=== PATIENT | female | born 1960 | race Caucasian/White ===

== ENCOUNTER → 2017-04-11 | Outpatient (CLI) | payer OTHER ==
--- NOTE | 2017-04-11 10:20 | MM ---
Reason for exam: additional evaluation requested from prior study. Last mammogram was performed 1 year ago. History: Patient is postmenopausal. Family history of premenopausal breast cancer in sister at age 36 and premenopausal breast cancer in grandmother at age 45. Benign excisional biopsy of the left breast. Benign excisional biopsy of the right breast. Took hormonal contraceptives for 3 months beginning at age 18. Took estrogen for 2 years. MG 3D Diag Mammo W/Cad RADHA Bilateral CC and MLO view(s) were taken. Prior study comparison: March 31, 2016, bilateral MG diagnostic mammo w CAD RADHA. October 08, 2015, left breast MG 3d diag mammo w/cad LT. March 12, 2015, bilateral MG diagnostic mammo w CAD RADHA. There is chronic nodularity bilaterally. There is no new dominant lesion. These results were verbally communicated with the patient and result sheet given to the patient on 04/11/17. ASSESSMENT: Benign, BI-RAD 2 RECOMMENDATION: Routine screening mammogram of both breasts in 1 year.
== END | disposition home or self-care (01) ==
LOC: RADMAMWWP 09:41
PROVIDERS: ATTEND Family Medicine
DX: N64.59 Other signs and symptoms in breast (principal); Z80.3 Family history of malignant neoplasm of breast; Z98.890 Other specified postprocedural states; Z87.898 Personal history of other specified conditions
CPT/HCPCS: G0204; G0279

== ENCOUNTER → 2018-03-29 | Outpatient (CLI) | payer OTHER ==
--- NOTE | 2018-04-03 13:06 | MM ---
Reason for exam: additional evaluation requested from prior study. Last mammogram was performed 1 year ago. History: Patient is postmenopausal. Family history of premenopausal breast cancer in sister at age 36 and premenopausal breast cancer in grandmother at age 45. Benign excisional biopsy of the left breast. Benign excisional biopsy of the right breast. Took hormonal contraceptives for 3 months beginning at age 18. Took estrogen for 2 years. Physical Findings: Nurse did not find any significant physical abnormalities on exam. MG Diagnostic Mammo w CAD RADHA Bilateral CC and MLO view(s) were taken. Prior study comparison: April 11, 2017, bilateral MG 3d diag mammo w/cad RADHA. March 31, 2016, bilateral MG diagnostic mammo w CAD RADHA. There is chronic nodularity in the left breast. There is no discrete abnormality. These results were verbally communicated with the patient and result sheet given to the patient on 03/29/18. ASSESSMENT: Negative, BI-RAD 1 RECOMMENDATION: Routine screening mammogram of both breasts in 1 year.
== END | disposition home or self-care (01) ==
LOC: RADMAMWWP 10:15
PROVIDERS: ATTEND Family Medicine
DX: R92.2 Inconclusive mammogram (principal)
CPT/HCPCS: 77066

== ENCOUNTER → 2019-04-25 | Outpatient (CLI) | payer OTHER ==
--- NOTE | 2019-04-29 10:07 | MM ---
Reason for exam: screening (asymptomatic). Last mammogram was performed 1 year and 1 month ago. History: Patient is postmenopausal. Family history of premenopausal breast cancer in sister at age 36 and premenopausal breast cancer in grandmother at age 45. Benign excisional biopsy of the left breast. Benign excisional biopsy of the right breast. Took hormonal contraceptives for 3 months beginning at age 18. Took estrogen for 2 years. Physical Findings: A clinical breast exam by your physician is recommended on an annual basis and results should be correlated with mammographic findings. MG Screening Mammo w CAD Bilateral CC and MLO view(s) were taken. Prior study comparison: March 29, 2018, bilateral MG diagnostic mammo w CAD RADHA. April 11, 2017, bilateral MG 3d diag mammo w/cad RADHA. The breast tissue is heterogeneously dense. This may lower the sensitivity of mammography. No suspicious abnormality. Unchanged posterior depth left medial asymmetry. No significant changes when compared with prior studies. ASSESSMENT: Benign, BI-RAD 2 RECOMMENDATION: Routine screening mammogram of both breasts in 1 year.
== END | disposition home or self-care (01) ==
LOC: RADMAMWWP 11:09
PROVIDERS: ATTEND Family Medicine
DX: Z12.31 Encounter for screening mammogram for malignant neoplasm of breast (principal)
CPT/HCPCS: 77067

== ENCOUNTER → 2020-05-28 | Outpatient (CLI) | payer OTHER ==
--- NOTE | 2020-05-31 12:02 | MM ---
Reason for exam: screening (asymptomatic). Last mammogram was performed 1 year and 1 month ago. History: Patient is postmenopausal. Family history of premenopausal breast cancer in sister at age 36 and premenopausal breast cancer in grandmother at age 45. Benign excisional biopsy of the left breast. Benign excisional biopsy of the right breast. Took hormonal contraceptives for 3 months beginning at age 18. Took estrogen for 2 years. Physical Findings: A clinical breast exam by your physician is recommended on an annual basis and results should be correlated with mammographic findings. MG 3D Screening Mammo W/Cad Bilateral CC and MLO view(s) were taken. Prior study comparison: April 25, 2019, bilateral MG screening mammo w CAD. March 29, 2018, bilateral MG diagnostic mammo w CAD RADHA. The breast tissue is heterogeneously dense. This may lower the sensitivity of mammography. There is chronic nodularity in the left breast. There is no discrete abnormality. ASSESSMENT: Benign, BI-RAD 2 RECOMMENDATION: Routine screening mammogram of both breasts in 1 year.
== END | disposition home or self-care (01) ==
LOC: RADMAMWWP 16:16
PROVIDERS: ATTEND Family Medicine
DX: Z12.31 Encounter for screening mammogram for malignant neoplasm of breast (principal)
CPT/HCPCS: 77063; 77067

== ENCOUNTER → 2021-09-13 | Outpatient (CLI) | payer OTHER ==
--- NOTE | 2021-09-15 10:55 | MM ---
Reason for exam: screening (asymptomatic). Last mammogram was performed 1 year and 4 months ago. History: Patient is postmenopausal. Family history of premenopausal breast cancer in sister at age 36 and premenopausal breast cancer in grandmother at age 45. Benign excisional biopsy of the left breast. Benign excisional biopsy of the right breast. Took hormonal contraceptives for 3 months beginning at age 18. Took estrogen for 2 years. Physical Findings: A clinical breast exam by your physician is recommended on an annual basis and results should be correlated with mammographic findings. MG 3D Screening Mammo W/Cad Bilateral CC and MLO view(s) were taken. XCCL view(s) were taken of the right breast. Prior study comparison: May 28, 2020, bilateral MG 3d screening mammo w/cad. April 25, 2019, bilateral MG screening mammo w CAD. There are scattered fibroglandular densities. There is chronic nodularity bilaterally. No significant changes when compared with prior studies. ASSESSMENT: Benign, BI-RAD 2 RECOMMENDATION: Routine screening mammogram of both breasts in 1 year.
== END | disposition home or self-care (01) ==
LOC: RADMAMWWP 11:45
PROVIDERS: ATTEND Family Medicine
DX: Z12.31 Encounter for screening mammogram for malignant neoplasm of breast (principal); Z80.3 Family history of malignant neoplasm of breast; Z78.0 Asymptomatic menopausal state
CPT/HCPCS: 77063; 77067

== ENCOUNTER → 2022-04-07 | Outpatient (CLI) | payer OTHER ==
[2022-04-07 18:19] LABS: Basophils # (A) 0.06 X 10*3/uL (0.00-0.10); Basophils % (A) 0.9 %; Eosinophils # (A) 0.06 X 10*3/uL (0.04-0.35); Eosinophils % (A) 0.9 %; HGB 12.6 g/dL (12.0-15.0); Immature Grans, Automated 0.5 %; Lymphocytes # (A) 0.94 X 10*3/uL (0.90-5.00); Lymphocytes % (A) 14.8 %; MCH 28.3 pg (27.0-32.0); MCHC 33.2 g/dL (32.0-37.0); MCV 85.4 fL (80.0-97.0); Mean Platelet Volume 10.5 fL (9.5-12.2); Monocytes # (A) 0.73 X 10*3/uL (0.20-1.00); Monocytes % (A) 11.5 %; NRBC Per 100 WBC 0 /100 WBCS (0.0-0.0); Neutrophils # (A) 4.55 X 10*3/uL (1.80-7.70); Neutrophils % (A) 71.4 %; Platelet Count 361 X 10*3/uL (140-440); RBC 4.45 X 10*6/uL (4.10-5.20); RDW 14.5 % (11.5-14.5); WBC 6.37 X 10*3/uL (4.50-10.00)
[2022-04-07 18:49] LABS: Erythrocyte Sedimentation Rate 12 mm/Hr (0-30)
== END | disposition home or self-care (01) ==
LOC: LABWHC1 10:46
PROVIDERS: ATTEND Internal Medicine
DX: C34.90 Malignant neoplasm of unspecified part of unspecified bronchus or lung (principal); R63.4 Abnormal weight loss; R91.1 Solitary pulmonary nodule
CPT/HCPCS: 36415; 85025; 85652; 86301

== ENCOUNTER → 2022-04-14 | Outpatient (CLI) | payer OTHER ==
--- NOTE | 2022-04-16 22:43 | PE ---
EXAMINATION TYPE: PET CT fusion skull to thigh DATE OF EXAM: 04/14/2022 CLINICAL INDICATION:Female, 62 years old with history of R91.1 SOLITARY PULMONARY NODULE; TECHNIQUE: Following the intravenous administration of 12.77 mCi of F-18 FDG, whole body images are performed from the skull base to the midthigh. Images are reviewed on the computer in the coronal, axial, and sagittal planes. Reconstructed rotating images are created on independent workstation and reviewed on the computer. A non-contrast CT is performed in conjunction with the PET scan. Glucose level 145 mg/dL COMPARISON: CT None, PET/CT None, plain film 04/07/2022 FINDINGS: Mediastinal SUV mean is 1.6. Hepatic parenchyma SUV mean is 1.7. SKULL BASE AND NECK: No suspicious FDG activity. CHEST, MEDIASTINUM, AND HILAR REGION: Bilateral pleural effusions with scattered consolidation opacities. Additionally there thickening of the intralobular septa. Consolidation in the right middle lobe max SUV 2.8. Mediastinal lymph nodes including right low paratracheal measuring 10 mm in short axis with max SUV 2 .6, right pulmonary hilum which is suboptimally evaluated without contrast with max SUV 4.0 and subca rinal measuring 15 in short axis with max SUV 3.3. Multiple opacities with masslike appearance, examples of the largest include: * Right upper lobe 2.2 x 2.2 cm with max SUV 3.0. * Right upper lobe more inferior 2.2 x 1.7 cm with max SUV 2.0. * Left upper lobe 12 mm with max SUV 1.7 Consolidation in the right middle lobe max SUV 2.8. ABDOMEN AND PELVIS: * Ill-defined right hepatic lobe given noncontrast technique demonstrating increased FDG uptake with Max SUV 7.0 measuring at least 4.9 x 3.1 cm in the right hepatic lobe. Possible additional area kady uring Max SUV 2.9 cm near the dome of the liver * Eccentric left posterior rectal wall thickening measuring up to 12 mm with increased FDG activity max SUV 4.5. * Suspicious FDG activity within a soft tissue mass measuring 3.1 x 2.6 cm located within the spleni c hilum immediately adjacent and/or within the pancreatic tail measuring Max SUV 6.6. OSSEOUS STRUCTURES: No suspicious FDG activity. OTHER CT: There is a pericardial effusion. Small hiatal hernia is present. Postsurgical changes to th e stomach. Atherosclerosis of the arterial vasculature. The scattered clonic diverticula. Post surgic al changes anterior abdominal wall. IMPRESSION: 1. 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 Direct visu alization recommended. 2. Right hepatic lobe masslike area of FDG activity measuring up to 4.8 cm. Further evaluation the l iver is recommended CT/ MRI with IV contrast liver mass protocol. Findings may relate to #1. 3. Scattered pulmonary nodules of which the largest in the right upper lobe measuring 2.2 cm as well as multiple other larger nodules which demonstrate mild FDG activity and given the distribution coul d represent metastatic disease with possible lymphangitic carcinomatosis of the lungs. There is assoc iated mediastinal lymphadenopathy also concerning for metastatic disease. There may be superimposed i nfection and/or vascular congestion given findings. 4. Irregular splenic hilum/pancreatic tail mass with increased FDG activity measuring up to 3.1 cm u nclear etiology given the constellation of findings above. Correlate clinical history.
== END | disposition home or self-care (01) ==
LOC: RADPETMAIN 10:02
PROVIDERS: ATTEND Internal Medicine
DX: K62.89 Other specified diseases of anus and rectum (principal); R91.8 Other nonspecific abnormal finding of lung field; K86.89 Other specified diseases of pancreas
CPT/HCPCS: 78815; A9552

== ENCOUNTER 2022-04-17 15:20 | Inpatient (IN) | payer OTHER ==
--- NOTE | 2022-04-17 16:56 | ED ---
General Adult HPI - General Chief complaint: Shortness of Breath Stated complaint: BRITTANI,Cough,PCP send abnormal Catscan Time Seen by Provider: 04/17/22 16:42 Source: patient, RN notes reviewed, old records reviewed Mode of arrival: wheelchair - History of Present Illness Initial comments: 62-year-old female presenting for evaluation of dyspnea and weight loss as well as abnormal outpatient PET scan. Patient was sent in by her radiology tech with abnormal PET scan. She's had progressive dyspnea over several months but this has worsened significantly over the past one week. She has a dry cough. She's had a 35 pound weight loss. No fever. No significant chest pain. She has some abdominal distention without pain. She has remote history of DVT but currently not on any blood thinners. - Related Data Home Medications Medication Instructions Recorded Confirmed ALPRAZolam [Xanax] 0.25 mg PO BID PRN 04/17/22 04/17/22 ARIPiprazole [Abilify] 5 mg PO DAILY 04/17/22 04/17/22 Albuterol Inhaler [Ventolin Hfa 1 - 2 puff INHALATION RT-Q6H PRN 04/17/22 04/17/22 Inhaler] Atorvastatin Calcium 10 mg PO HS 04/17/22 04/17/22 Cetirizine HCl [Zyrtec] 10 mg PO DAILY 04/17/22 04/17/22 Cholecalciferol [Vitamin D3 (25 50 mcg PO DAILY 04/17/22 04/17/22 Mcg = 1000 Iu)] Cyanocobalamin (Vitamin B-12) 1,000 mcg PO DAILY 04/17/22 04/17/22 [Vitamin B-12] Escitalopram [Lexapro] 10 mg PO DAILY 04/17/22 04/17/22 Famotidine [Pepcid] 20 mg PO BID 04/17/22 04/17/22 Fluticasone Nas[place] [Flonase 1 spray EA NOSTRIL DAILY 04/17/22 04/17/22 [place]] Multivitamins, Thera [Multivitamin 1 tab PO DAILY 04/17/22 04/17/22 (formulary)] Oxybutynin Chloride [Ditropan] 5 mg PO BID 04/17/22 04/17/22 Oxybutynin Chloride [Ditropan] 5 mg PO BID PRN 04/17/22 04/17/22 hydroCHLOROthiazide [Hydrodiuril] 25 mg PO DAILY 04/17/22 04/17/22 lamoTRIgine 100 mg PO BID 04/17/22 04/17/22 metFORMIN HCL 500 mg PO BID 04/17/22 04/17/22 sitaGLIPtin [Januvia] 100 mg PO DAILY 04/17/22 04/17/22 Allergies Allergy/AdvReac Type Severity Reaction Status Date / Time Sulfa (Sulfonamide AdvReac Rash/Hives Verified 04/17/22 18:24 Antibiotics) sulfamethoxazole AdvReac Rash/Hives Verified 04/17/22 18:24 [From Bactrim] trimethoprim [From Bactrim] AdvReac Rash/Hives Verified 04/17/22 18:24 Review of Systems ROS Statement: Those systems with pertinent positive or pertinent negative responses have been documented in the HPI. ROS Other: All systems not noted in ROS Statement are negative. Past Medical History Past Medical History: Diabetes Mellitus History of Any Multi-Drug Resistant Organisms: None Reported Past Surgical History: Bariatric Surgery, Section, Hysterectomy, Tonsillectomy Past Psychological History: No Psychological Hx Reported Smoking Status: Former smoker Past Alcohol Use History: Rare Past Drug Use History: None Reported General Exam General appearance: alert, in distress Head exam: Present: atraumatic, normocephalic Eye exam: Present: normal appearance, PERRL ENT exam: Present: normal exam Neck exam: Present: normal inspection. Absent: tenderness, meningismus Respiratory exam: Present: respiratory distress, other (Tachypnea with good air entry). Absent: wheezes, rales Cardiovascular Exam: Present: regular rate, normal rhythm GI/Abdominal exam: Present: distended. Absent: tenderness, guarding Extremities exam: Present: normal inspection Neurological exam: Present: alert, oriented X3, CN II-XII intact. Absent: motor sensory deficit Psychiatric exam: Present: anxious Skin exam: Present: warm, dry, intact. Absent: cyanosis, diaphoretic Course Vital Signs 04/17/22 04/17/22 04/17/22 15:31 17:30 18:18 Temperature 97.8 F Pulse Rate 91 90 Respiratory 16 22 20 Rate Blood Pressure 162/79 155/86 O2 Sat by Pulse 91 L 94 L Oximetry EKG Findings - EKG Comments: EKG Findings:: EKG: Sinus rhythm low voltage, rate of 92, OK interval 142, QRS duration 81, QTC [address] segment elevation. Medical Decision Making - Medical Decision Making 62-year-old female with progressive dyspnea. Patient is tachypneic with good air entry. No fever. Mild hypoxia. Patient had PET scan showing multiple areas of uptake. Workup initiated in the emergency department includes la boratory testing, EKG, chest x-ray. Patient has significantly elevated d-dimer and CT angiography was performed which was negative for pulmonary embolism but showed extensive pulmonary infiltrate and pulmonary mass suggestive of metastatic disease as well as hypodensity within the liver and pancreas. The patient's had a hyponatremia of 118 otherwise normal electrolytes. She will be admitted to internal medicine with both pulmonology who is aware of the patient's current issue and oncology placed on consult. Case discussed with Misbah conteh for [facility] - Lab Data Result diagrams: 04/17/22 17:12 04/17/22 17:12 Lab Results 04/17/22 04/17/22 04/17/22 Range/Units 17:12 17:12 17:12 WBC 10.4 (3.8-10.6) k/uL RBC 4.79 (3.80-5.40) m/uL Hgb 13.2 (11.4-16.0) gm/dL Hct 40.7 (34.0-46.0) % MCV 85.1 (80.0-100.0) fL MCH 27.5 (25.0-35.0) pg MCHC 32.3 (31.0-37.0) g/dL RDW 14.7 (11.5-15.5) % Plt Count 254 (150-450) k/uL MPV 7.5 Neutrophils % 79 % Lymphocytes % 10 % Monocytes % 7 % Eosinophils % 3 % Basophils % 1 % Neutrophils # 8.2 H (1.3-7.7) k/uL Lymphocytes # 1.0 (1.0-4.8) k/uL Monocytes # 0.7 (0-1.0) k/uL Eosinophils # 0.3 (0-0.7) k/uL Basophils # 0.1 (0-0.2) k/uL PT 10.2 (9.0-12.0) sec INR 0.9 (<1.2) APTT 22.5 (22.0-30.0) sec D-Dimer 7.55 H (<0.60) mg/L FEU Sodium 118 L* (137-145) mmol/L Potassium 3.8 (3.5-5.1) mmol/L Chloride 83 L (98-107) mmol/L Carbon Dioxide 22 (22-30) mmol/L Anion Gap 13 mmol/L BUN 6 L (7-17) mg/dL Creatinine 0.43 L (0.52-1.04) mg/dL Est GFR (CKD-EPI)AfAm >90 (>60 ml/min/1.73 sqM) Est GFR (CKD-EPI)NonAf >90 (>60 ml/min/1.73 sqM) Glucose 128 H (74-99) mg/dL Plasma Lactic Acid De (0.7-2.0) mmol/L Calcium 9.1 (8.4-10.2) mg/dL Magnesium 1.7 (1.6-2.3) mg/dL Total Bilirubin 1.0 (0.2-1.3) mg/dL AST 70 H (14-36) U/L ALT 30 (4-34) U/L Alkaline Phosphatase 260 H (38-126) U/L NT-Pro-B Natriuret Pep pg/mL Total Protein 6.8 (6.3-8.2) g/dL Albumin 4.3 (3.5-5.0) g/dL 04/17/22 04/17/22 Range/Units 17:12 17:12 WBC (3.8-10.6) k/uL RBC (3.80-5.40) m/uL Hgb (11.4-16.0) gm/dL Hct (34.0-46.0) % MCV (80.0-100.0) fL MCH (25.0-35.0) pg MCHC (31.0-37.0) g/dL RDW (11.5-15.5) % Plt Count (150-450) k/uL MPV Neutrophils % % Lymphocytes % % Monocytes % % Eosinophils % % Basophils % % Neutrophils # (1.3-7.7) k/uL Lymphocytes # (1.0-4.8) k/uL Monocytes # (0-1.0) k/uL Eosinophils # (0-0.7) k/uL Basophils # (0-0.2) k/uL PT (9.0-12.0) sec INR (<1.2) APTT (22.0-30.0) sec D-Dimer (<0.60) mg/L FEU Sodium (137-145) mmol/L Potassium (3.5-5.1) mmol/L Chloride (98-107) mmol/L Carbon Dioxide (22-30) mmol/L Anion Gap mmol/L BUN (7-17) mg/dL Creatinine (0.52-1.04) mg/dL Est GFR (CKD-EPI)AfAm (>60 ml/min/1.73 sqM) Est GFR (CKD-EPI)NonAf (>60 ml/min/1.73 sqM) Glucose (74-99) mg/dL Plasma Lactic Acid De 1.2 (0.7-2.0) mmol/L Calcium (8.4-10.2) mg/dL Magnesium (1.6-2.3) mg/dL Total Bilirubin (0.2-1.3) mg/dL AST (14-36) U/L ALT (4-34) U/L Alkaline Phosphatase (38-126) U/L NT-Pro-B Natriuret Pep 514 pg/mL Total Protein (6.3-8.2) g/dL Albumin (3.5-5.0) g/dL Critical Care Time Critical Care Time: Yes Total Critical Care Time: 35 Disposition Clinical Impression: Hyponatremia, Metastatic cancer Disposition: ADMITTED IP TO THIS [facility] Condition: Serious Is patient prescribed a controlled substance at d/c from ED?: No Referrals: Tara Pandey NPC [REFERRING] - 1-2 days Time of Disposition: 19:43
[2022-04-17 17:34] LABS: Basophils # (A) 0.1 k/uL (0-0.2); Basophils % (A) 1 %; Eosinophils # (A) 0.3 k/uL (0-0.7); Eosinophils % (A) 3 %; HCT 40.7 % (34.0-46.0); HGB 13.2 gm/dL (11.4-16.0); Lymphocytes % (A) 10 %; MCH 27.5 pg (25.0-35.0); MCHC 32.3 g/dL (31.0-37.0); MCV 85.1 fL (80.0-100.0); Mean Platelet Volume 7.5; Monocytes # (A) 0.7 k/uL (0-1.0); Monocytes % (A) 7 %; Neutrophils # (A) 8.2 k/uL (1.3-7.7); Neutrophils % (A) 79 %; Platelet Count 254 k/uL (150-450); RBC 4.79 m/uL (3.80-5.40); RDW 14.7 % (11.5-15.5); WBC 10.4 k/uL (3.8-10.6)
[2022-04-17 17:41] LABS: ALT 30 U/L (4-34); African American GFR (CKD) >90 (>60 ml/min/1.73 sqM); Anion Gap 13 mmol/L; Blood Urea Nitrogen 6 mg/dL (7-17); Calcium 9.1 mg/dL (8.4-10.2); Carbon Dioxide 22 mmol/L (22-30); Chloride 83 mmol/L (98-107); Glucose 128 mg/dL (74-99); Non-African American GFR(CKD) >90 (>60 ml/min/1.73 sqM)
[2022-04-17 17:43] LABS: Sodium 118 mmol/L (137-145)
[2022-04-17 17:44] LABS: AST 70 U/L (14-36); Albumin 4.3 g/dL (3.5-5.0); Alkaline Phosphatase 260 U/L (38-126); Potassium 3.8 mmol/L (3.5-5.1); Total Protein 6.8 g/dL (6.3-8.2)
[2022-04-17 17:45] LABS: Magnesium 1.7 mg/dL (1.6-2.3)
[2022-04-17 17:52] LABS: INR 0.9 (<1.2); Partial Thromboplastin Time 22.5 sec (22.0-30.0); Prothrombin Time 10.2 sec (9.0-12.0)
--- NOTE | 2022-04-17 18:29 | XR ---
EXAMINATION TYPE: XR chest 2V DATE OF EXAM: 04/17/2022 COMPARISON: 04/07/2022 HISTORY: Nodules. Pain TECHNIQUE: 2 views FINDINGS: There is extensive interstitial and nodular infiltrates throughout the lungs. There is slig ht blunting of the costophrenic angles. Mediastinum is normal. There is probably mild bronchial adeno minnie. IMPRESSION: Extensive nodular and interstitial infiltrate in the lungs that has progressed compared t o the old exam.
[2022-04-17] MEDS: SODIUM CHLORIDE 0.9% 1,000 ML IV SCH (18:56)
--- NOTE | 2022-04-17 19:36 | CT ---
EXAMINATION TYPE: CT angio chest DATE OF EXAM: 04/17/2022 COMPARISON: None HISTORY: BRITTANI CT DLP: 383.6 mGycm Automated exposure control for dose reduction was used. CONTRAST: Performed with IV Contrast, patient injected with 80ML mL of Isovue 370. There are Three-D postprocessed images. There is extensive nodular interstitial infiltrate throughout the lungs. There is bilateral pleural e ffusions. There is some stellate masses in both lung corbett that measure up to 3 cm. There are enlarg ed bilateral bronchial lymph nodes up to 2 cm. Thoracic aorta is intact. No aneurysm or dissection. T here is some consolidation in the right middle lobe. The thoracic spine is intact. No compression fracture. Sternum is intact. There is rounded 4.5 x 3 cm hypodense mass in the posterior right lobe of the liver with some periphe ral enhancement. There is also some poorly marginated 4 cm area of hypodensity in the mid right lobe of the liver. There is a mass at the tail of the pancreas that measures 3.1 cm. No evidence of filling defect in the pulmonary arteries. IMPRESSION: Numerous pulmonary masses and extensive interstitial pulmonary infiltrates and suggestive of metastat ic disease and lymphangitic metastatic disease. Moderate pleural effusions. No evidence of pulmonary embolism. Mass at the tail of the pancreas could be a tumor. Hypodense liver mass in the posterior right lobe o f the liver. Hypodensity in mid right lobe of the liver consistent with metastatic disease and not changed compare d to recent PET/CT scan.
[2022-04-17] MEDS ORDERED: HYDROmorphone 0.5 MG/0.5 ML SYRINGE IVP PRN (19:39)
[2022-04-17] MEDS ORDERED: NALOXONE 0.4 MG/ML 1 ML VIAL IV PRN (19:39)
--- NOTE | 2022-04-17 20:19 | US ---
EXAMINATION TYPE: US liver DATE OF EXAM: 04/17/2022 COMPARISON: PET CT 04/14/22 CLINICAL HISTORY: pancreatic mass wilh liver mets. liver mets TECHNIQUE: Multiple sonographic images of the right upper quadrant are obtained. FINDINGS: EXAM MEASUREMENTS: Liver Length: 19.7 cm Gallbladder Wall: 0.15 cm CBD: 0.29 cm Right Kidney: 10.6 x 5.0 x 4.7 cm TON CONTAINER FILLER NOTES: Pancreas: Limited due to bowel gas Liver: Heterogeneous Gallbladder: Hydropic measuring 10.3 cm Evidence for sonographic Williamson's sign: No CBD: Not well visualized Right Kidney: wnl IMPRESSION: Gallbladder is large and measures 10.7 x 3.8 cm. No dilated ducts. There is a 4 cm poorly marginated area of increased echogenicity in the right lobe of the liver near the albina hepatis. This is consist ent with metastatic disease.
--- NOTE | 2022-04-17 20:20 | US ---
EXAMINATION TYPE: US chest DATE OF EXAM: 04/17/2022 COMPARISON: NONE CLINICAL HISTORY: Markings for thoracentesis by pulmonary staff. TECHNIQUE: Targeted ultrasound of the posterior lower bilateral hemithoraces EXAM MEASUREMENTS: Right Pleural Effusion pocket size: 11.3 cm Right skin surface to fluid distance: 2.1 cm Left Pleural Effusion pocket size: 10.1 cm Left skin surface to fluid distance: 1.7 cm Right side marked for possible thoracentesis outside the dept. Left side marked for possible thoracentesis outside the dept. Pulmonologists are able to review the images in the patient?s EMR. Fluid pockets are complex bilaterally IMPRESSIONS: There is demonstrated moderate sized bilateral pleural effusions.
[2022-04-17] MEDS: ACETAMINOPHEN TAB 325 MG TAB PO PRN (21:42)
[2022-04-17] MEDS ORDERED: IBUPROFEN 400 MG TAB PO PRN (22:14)
[2022-04-17] MEDS: OXYBUTYNIN CHLORIDE 5 MG TAB PO SCH (22:23)
[2022-04-17] MEDS: lamoTRIgine 100 MG TAB PO SCH (22:23)
[2022-04-17] MEDS: ALPRAZolam 0.25 MG TAB PO PRN (22:23)
[2022-04-18] MEDS: ALPRAZolam 0.25 MG TAB PO PRN ×2 (04:54→12:32)
[2022-04-18 06:01] LABS: Glucose,Whole Blood 160 mg/dL (70-110)
[2022-04-18] MEDS: INSULIN ASPART (NovoLOG) 100 UNIT/ML VIAL SQ SCH ×4 (06:32→22:26)
[2022-04-18] MEDS: OXYBUTYNIN CHLORIDE 5 MG TAB PO SCH ×2 (09:13→19:53)
[2022-04-18] MEDS: lamoTRIgine 100 MG TAB PO SCH ×2 (09:13→19:53)
[2022-04-18] MEDS: ACETAMINOPHEN TAB 325 MG TAB PO PRN ×2 (10:39→19:53)
[2022-04-18] MEDS ORDERED: LIDOCAINE 1% INJ 10MG/ML (20 ML MDV) ONE (11:10)
[2022-04-18 11:21] LABS: Basophils % (A) 0 %; Eosinophils # (A) 0.1 k/uL (0-0.7); Eosinophils % (A) 2 %; HCT 40.1 % (34.0-46.0); HGB 13.1 gm/dL (11.4-16.0); Lymphocytes # (A) 0.7 k/uL (1.0-4.8); Lymphocytes % (A) 8 %; MCH 27.8 pg (25.0-35.0); MCHC 32.6 g/dL (31.0-37.0); MCV 85.5 fL (80.0-100.0); Mean Platelet Volume 8.5; Monocytes # (A) 0.6 k/uL (0-1.0); Monocytes % (A) 7 %; Neutrophils % (A) 81 %; Platelet Count 211 k/uL (150-450); RDW 14.8 % (11.5-15.5); WBC 8.6 k/uL (3.8-10.6)
[2022-04-18 11:38] LABS: African American GFR (CKD) >90 (>60 ml/min/1.73 sqM); Anion Gap 13 mmol/L; Blood Urea Nitrogen 5 mg/dL (7-17); Carbon Dioxide 25 mmol/L (22-30); Chloride 83 mmol/L (98-107); Glucose 142 mg/dL (74-99); Non-African American GFR(CKD) >90 (>60 ml/min/1.73 sqM); Sodium 121 mmol/L (137-145)
[2022-04-18 11:40] LABS: Potassium 3.5 mmol/L (3.5-5.1)
[2022-04-18 11:43] LABS: Glucose,Whole Blood 168 mg/dL (70-110)
[2022-04-18 12:58] LABS: Total Protein 6.7 g/dL (6.3-8.2)
[2022-04-18 13:16] VITALS: BMI 27.8
--- NOTE | 2022-04-18 13:39 | P.PCN ---
Date of Procedure: 04/18/22 Preoperative Diagnosis: metastatic disease, lymphadenopathy Postoperative Diagnosis: same Procedure(s) Performed: FNA right supraclavicular lymph node Anesthesia: local Estimated Blood Loss (ml): 1 Pathology: other (to histo) Condition: stable Disposition: no change Operative Findings: 4 x 25 ga needle under u/s guide
--- NOTE | 2022-04-18 13:42 | XR ---
EXAMINATION TYPE: XR chest 1V portable DATE OF EXAM: 04/18/2022 COMPARISON: Chest x-ray 04/17/2022 HISTORY: Status post thoracentesis TECHNIQUE: Single frontal view of the chest is obtained. FINDINGS: There is been interval improvement in aeration at the right lung base. No evident pneumoth orax or other significant interval change. IMPRESSION: No evident complication status post right thoracentesis.
--- NOTE | 2022-04-18 13:45 | US ---
EXAMINATION TYPE: US FNA first lesion DATE OF EXAM: 04/18/2022 HISTORY: Metastatic disease, supraclavicular adenopathy. FINDINGS: Maximal barrier technique was utilized. Hand hygiene achieved with soap and water and alco hol-based hand rub. The skin overlying a suitable path to the patient's adenopathy in the right supra clavicular region] was localized with ultrasound and the overlying skin prepped and draped. Ultrasou nd was utilized with sterile technique. Lidocaine was used for local anesthesia. 4 passes with a 25- gauge needle were made under direct ultrasound guidance and aspirated specimen some supraclavicular n ode was submitted to histology. Following the procedure, hemostasis achieved and the patient is disc harged in stable condition without complication. IMPRESSION:STATUS POST ULTRASOUND GUIDED FINE-NEEDLE ASPIRATION BIOPSY OF right supraclavicular adeno minnie, PATHOLOGY IS PENDING. THIS PROCEDURE IS PERFORMED BY THE UNDERSIGNED.
--- NOTE | 2022-04-18 15:32 | P.CNPUL ---
History of Present Illness Consult date: 04/18/22 Requesting physician: Sebastian Diggs Reason for consult: other (Abnormal CT of the chest and abnormal PET scan.) Chief complaint: Shortness of breath History of present illness: This is a 62-year-old female who is quite familiar to my service. 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 Patient is known to have history of hypertension, GERD, dyslipidemia, type 2 diabetes, remote smoking history, and she quit smoking over 25 years ago. She has family history of pancreatic cancer, and she has been losing weight roughly 30 pounds in the last 2 months. She had a CT of the chest that came back showing multiple parenchymal masses mediastinal adenopathy moderate pericardial effusion bilateral pleural effusions and a liver mass. After evaluating the patient, I felt that most likely were dealing with pancreatic cancer with lymphangitic carcinomatosis hence I recommended a PET scan, I also recommended a CA 199, I have also recommended follow-up on outpatient basis to possibly consider bronchoscopy with transbronchial biopsy of what seems to be a right upper lobe nodule/mass although the patient had multiple pulmonary nodules noted bilaterally in both lungs. Patient was given a follow-up appointment to see me in the office next week, however yesterday the patient was developing worsening symptoms of shortness of breath, hence she came into the ER. Her PET scan which was done recently clearly showed significant uptake in her pulmonary nodules, mediastinal nodes, liver mass, and a pancreatic mass. That went ahead to confirm that this is most likely a pancreatic cancer with metastasis. CA 199 came back over 10,000. At any rate patient was admitted, today I saw the patient, and I recommended a right-sided thoracentesis for diagnostic purposes, I also discussed the case with the interventional radiologist who reviewed the PET scan and a CT of the chest, and he felt that he could easily access the supraclavicular lymph nodes on the right side, and we'll perform a tissue diagnosis. Today the patient underwent both procedures including thoracentesis and FNA of right supraclavicular lymph node. Both procedures may or may not give us a specific diagnosis, however if no diagnosis is made we can definitely consider liver biopsy we can also do consider navigational bronchoscopy and transbronchial biopsy of the right upper lobe. Clinically I am strongly suspicious of pancreatic carcinoma with lymphangitic carcinomatosis. Review of Systems Constitutional: No fever no chills but the patient had 30 pound weight loss in the last 2 months. Head: Atraumatic, normocephalic. HEENT: Negative Pulmonary: Shortness of breath no cough no wheezing no chest pain, no hemoptysis. Cardiac: Negative GI: Negative Genitourinary: Negative Musculoskeletal: Negative Hematologic: Negative Psychiatric: Negative Neurologic: Negative Endocrine: Negative Skin: Past Medical History Past Medical History: Diabetes Mellitus, Hyperlipidemia History of Any Multi-Drug Resistant Organisms: None Reported Past Surgical History: Bariatric Surgery, Section, Hysterectomy, Tons illectomy Past Psychological History: No Psychological Hx Reported Smoking Status: Former smoker Past Alcohol Use History: Rare Past Drug Use History: None Reported - Past Family History Mother Family Medical History: CVA/TIA Father Family Medical History: Congestive Heart Failure (CHF), Diabetes Mellitus Sister(s) Additional Family Medical History / Comment(s): PANCREATIC CANCER, BREAST CANCER Medications and Allergies Home Medications Medication Instructions Recorded Confirmed Type ALPRAZolam [Xanax] 0.25 mg PO BID PRN 04/17/22 04/17/22 History ARIPiprazole [Abilify] 5 mg PO DAILY 04/17/22 04/17/22 History Albuterol Inhaler [Ventolin Hfa 1 - 2 puff INHALATION RT-Q6H PRN 04/17/22 04/17/22 History Inhaler] Atorvastatin Calcium 10 mg PO HS 04/17/22 04/17/22 History Cetirizine HCl [Zyrtec] 10 mg PO DAILY 04/17/22 04/17/22 History Cholecalciferol [Vitamin D3 (25 50 mcg PO DAILY 04/17/22 04/17/22 History Mcg = 1000 Iu)] Cyanocobalamin (Vitamin B-12) 1,000 mcg PO DAILY 04/17/22 04/17/22 History [Vitamin B-12] Escitalopram [Lexapro] 10 mg PO DAILY 04/17/22 04/17/22 History Famotidine [Pepcid] 20 mg PO BID 04/17/22 04/17/22 History Fluticasone Nasal [place] [Flonase 1 spray EA NOSTRIL DAILY 04/17/22 04/17/22 History Nasal [place]] Multivitamins, Thera [Multivitamin 1 tab PO DAILY 04/17/22 04/17/22 History (formulary)] Oxybutynin Chloride [Ditropan] 5 mg PO BID 04/17/22 04/17/22 History Oxybutynin Chloride [Ditropan] 5 mg PO BID PRN 04/17/22 04/17/22 History hydroCHLOROthiazide [Hydrodiuril] 25 mg PO DAILY 04/17/22 04/17/22 History lamoTRIgine 100 mg PO BID 04/17/22 04/17/22 History metFORMIN HCL 500 mg PO BID 04/17/22 04/17/22 History sitaGLIPtin [Januvia] 100 mg PO DAILY 04/17/22 04/17/22 History Allergies Allergy/AdvReac Type Severity Reaction Status Date / Time Sulfa (Sulfonamide AdvReac Rash/Hives Verified 04/17/22 18:24 Antibiotics) sulfamethoxazole AdvReac Rash/Hives Verified 04/17/22 18:24 [From Bactrim] trimethoprim [From Bactrim] AdvReac Rash/Hives Verified 04/17/22 18:24 Physical Exam Vitals: Vital Signs Temp Pulse Pulse Resp BP BP Pulse Ox 04/18/22 13:45 78 18 148/82 98 04/18/22 13:30 80 16 152/83 98 04/18/22 13:15 79 18 154/84 100 04/18/22 12:51 79 18 160/84 100 04/18/22 12:00 97.5 F L 74 18 150/75 100 04/18/22 09:10 97.6 F 86 18 154/84 98 04/18/22 08:00 83 18 04/18/22 04:00 98.0 F 83 18 172/82 88 L 04/18/22 02:00 83 25 H 04/17/22 23:09 98.0 F 84 17 147/65 94 L 04/17/22 20:00 72 24 155/86 92 L 04/17/22 18:18 90 20 155/86 94 L 04/17/22 17:30 22 04/17/22 15:31 97.8 F 91 16 162/79 91 L Intake and Output 04/18/22 04/18/22 04/18/22 06:59 14:59 22:59 Intake Total 480 Balance 480 Intake: Oral 480 Other: Voiding Method Toilet Toilet # Voids 1 Weight 75.75 kg Physical Exam: Revealed 62-year-old female in no distress Head: Atraumatic, normocephalic. HEENT:[Neck is supple.] [No neck masses.] [No thyromegaly.] [No JVD.] Chest: [Diminished breath sounds at the bases, no crackles or rhonchi or wheezes Cardiac Exam: [Normal S1 and S2, no S3 gallop, no murmur.] Abdomen: [Soft, nontender, no megaly, no rebound, no guarding, normal bowel sounds.] Extremities: [No clubbing, no edema, no cyanosis.] Neurological Exam: [No focal neurologic deficit.] Alert and oriented 3 Psychiatric: Normal mood affect and normal mental status examination. Skin: No rashes. Results - Laboratory Findings CBC and BMP: 04/18/22 10:32 04/18/22 10:32 PT/INR, D-dimer PT 10.2 sec (9.0-12.0) 04/17/22 17:12 INR 0.9 (<1.2) 04/17/22 17:12 D-Dimer 7.55 mg/L FEU (<0.60) H 04/17/22 17:12 Abnormal lab findings: Abnormal Labs 04/17/22 04/17/22 04/17/22 17:12 17:12 17:12 Neutrophils # 8.2 H Lymphocytes # D-Dimer 7.55 H Sodium 118 L* Chloride 83 L BUN 6 L Creatinine 0.43 L Glucose 128 H POC Glucose (mg/dL) Osmolality AST 70 H Alkaline Phosphatase 260 H Lactate Dehydrogenase 04/18/22 04/18/22 04/18/22 06:00 10:32 10:32 Neutrophils # Lymphocytes # 0.7 L D-Dimer Sodium 121 L Chloride 83 L BUN 5 L Creatinine 0.42 L Glucose 142 H POC Glucose (mg/dL) 160 H Osmolality AST Alkaline Phosphatase Lactate Dehydrogenase 04/18/22 04/18/22 10:32 11:41 Neutrophils # Lymphocytes # D-Dimer Sodium Chloride BUN Creatinine Glucose POC Glucose (mg/dL) 168 H Osmolality 253 L AST Alkaline Phosphatase Lactate Dehydrogenase 891 H - Diagnostic Findings Additional studies: All studies including her most recent PET scan, computed tomography scan of the chest, were reviewed and as noted in HPI Assessment and Plan Assessment: Impression: Suspect metastatic adenocarcinoma, I believe this is pancreatic carcinoma with lymphangitic carcinomatosis on last Provera otherwise. Bilateral pleural effusions possibly malignant Pericardial effusion without tamponade seen on recent echocardiogram. Multiple pulmonary nodules consistent with metastatic disease to the lungs restrictive lung disease as noted on the recent PFT. Family history of pancreatic cancer. History of COVID-19 infection Type 2 diabetes without complications Essential hypertension History of depression Dyslipidemia Recommendation: Discussed and reviewed with the patient her workup so far. Discussed with the patient and that she will need a tissue diagnosis and will proceed with the least invasive way of diagnosis, Patient agreed to go ahead and perform a right-sided thoracentesis and 700 mL of fluid drained from the right pleural space Patient agreed to have supraclavicular lymph node aspiration or possibly a liver biopsy as recommended by interventional radiology for tissue diagnosis Based on the pathology findings, further recommendations will follow. Would definitely consider navigational bronchoscopy and transbronchial biopsy if no tissue diagnosis has been made. Again preferred to make a tissue diagnosis in the least invasive way if possible. Overall prognosis seems to be extremely poor and guarded. Oncology to see the patient on consultation Time with Patient: Greater than 30
[2022-04-18] MEDS: ARIPiprazole 5 MG TAB PO SCH (16:03)
[2022-04-18] MEDS: ESCITALOPRAM 10 MG TAB PO SCH (16:03)
[2022-04-18] MEDS: SODIUM CHLORIDE 0.9% 1,000 ML IV SCH (16:06)
[2022-04-18 16:54] LABS: Glucose,Whole Blood 235 mg/dL (70-110)
[2022-04-18 18:55] LABS: Glucose,Whole Blood 227 mg/dL (70-110)
[2022-04-18] MEDS: FAMOTIDINE 20 MG TAB PO SCH (19:53)
[2022-04-18 20:19] LABS: Glucose,Whole Blood 125 mg/dL (70-110)
--- NOTE | 2022-04-18 20:21 | OP ---
OPERATIVE REPORT PROCEDURE PERFORMED: Right-sided thoracentesis. PREOPERATIVE DIAGNOSIS: Right-sided pleural effusion and abnormal CT of the chest suggestive of lymphangitic carcinomatosis. POSTOPERATIVE DIAGNOSIS: Right-sided pleural effusion and abnormal CT of the chest suggestive of lymphangitic carcinomatosis. ANESTHESIA USED: 5 mL of 1% lidocaine. DESCRIPTION OF PROCEDURE: The patient was placed in a sitting upright position, the area below the right scapula was prepared in a sterile fashion and drapes were applied. The area was earlier localized by ultrasound guidance, and it correlated to the level of the 8th intercostal space and tip of the scapula. The area was locally anesthetized with lidocaine using 5 mL, and using a 22-gauge needle, the needle was inserted into the pleural space until the fluid was localized. Then, a small tiny incision was made, and a standard thoracentesis catheter and needle were used. It was inserted at the same site, advanced into the pleural space, and as soon as the fluid was obtained. The VAC catheter was advanced over the needle into the pleural space, and the needle was pulled out of the pleural space. Freely flowing fluid was removed, roughly 700 mL of cirilo colored fluid was removed from the right pleural space. Procedure was well tolerated. No complications. Chest x-ray showed no pneumothorax, and the fluid was sent for different diagnostic studies. MMODL / IJN: [id number] /
[2022-04-18] MEDS ORDERED: ATORVASTATIN 10 MG TAB PO SCH (21:00)
[2022-04-18 22:07] LABS: Total Protein 6.2 g/dL (6.3-8.2)
--- NOTE | 2022-04-18 23:06 | P.HPIM ---
History of Present Illness H&P Date: 04/18/22 Chief Complaint: Weakness and fatigue Patient is a 62-year-old female with a known history o, hypertension and hyperlipidemia and previous history of smoking was initially sent by her PCP due to complaints of generalized weakness and fatigue and weight loss and worsening dyspnea for the past 2 months. Patient also having dry cough and 35 pound weight loss during the last 2 months. 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 Direct relation recommended. Right hepatic lobe masslike area of FDG activity measuring up to 4.8 cm Scattered pulmonary nodules of which the largest in the right upper lobe measuring 2.2 cm as well as multiple other larger nodules which demonstrate mild FDG activity possible metastatic disease with possible lymphangitic carc inomatosis of the lungs. There is associated mediastinal lymphadenopathy concerning for metastatic disease. Irregular splenic hilum/pancreatic tail mass with increased FDG activity measuring up to 3.1 cm unclear etiology given the constellation of findings above. 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 Chest x-ray showed extensive nodular and interstitial infiltrate in the lungs but has progressed compared to old exam. CTA chest showed numerous pulmonary masses and extensive interstitial pulmonary infiltrates suggestive of metastatic disease and lymphangitic metastatic disease. Moderate pleural effusions. No evidence of PE. Mass of the tail of the pancreas could be a tumor Hypodense liver mass in the posterior right lobe of the liver. Hypodensity in the mid right lobe of the liver consistent with metastatic disease and not changed compared to recent PET/CT scan. Ultrasound liver showed gallbladder is large and measures 10.7 x 3.8 cm. No dilated ducts. Chest ultrasound showed redemonstrated moderate-sized bilateral pleural effusion. Laboratory data showed WBC 10.4 hemoglobin 13.2 and platelets 254 D-dimer 7.55 Sodium 118, potassium 3.8 and chloride 83 bicarb is 22 BUN 16 creatinine 0.43 Coronavirus PCR not detected. proBNP 514 CA 19 9 done on 04/07/2022 is greater than 10,000 Review of Systems Constitutional: Patient denies any fever or chills . Patient does have generalized weakness and fatigue and weight loss. Abdomen: Patient denied any nausea or vomiting or abd. pain Cardiovascular: Patient denies any chest pain or short of breath no palpitations. Respiratory: patient denied any cough . no sputum production. Does have exertional dyspnea. Neurologic: Patient denied any numbness or tingling headache. Musculoskeletal: Patient denies any complaints of joint swelling or deformity. Skin: Negative Psychiatric: Negative Endocrine: No heat or cold intolerance. No recent weight gain. Genitourinary: No dysuria or hematuria. All other 14 point ROS negative except the above Past Medical History Past Medical History: Diabetes Mellitus, Hyperlipidemia History of Any Multi-Drug Resistant Organisms: None Reported Past Surgical History: Bariatric Surgery, Section, Hysterectomy, Tonsillectomy Past Psychological History: No Psychological Hx Reported Smoking Status: Former smoker Past Alcohol Use History: Rare Past Drug Use History: None Reported - Past Family History Mother Family Medical History: CVA/TIA Father Family Medical History: Congestive Heart Failure (CHF), Diabetes Mellitus Sister(s) Additional Family Medical History / Comment(s): PANCREATIC CANCER, BREAST CANCER Medications and Allergies Home Medications Medication Instructions Recorded Confirmed Type ALPRAZolam [Xanax] 0.25 mg PO BID PRN 04/17/22 04/17/22 History ARIPiprazole [Abilify] 5 mg PO DAILY 04/17/22 04/17/22 History Albuterol Inhaler [Ventolin Hfa 1 - 2 puff INHALATION RT-Q6H PRN 04/17/22 04/17/22 History Inhaler] Atorvastatin Calcium 10 mg PO HS 04/17/22 04/17/22 History Cetirizine HCl [Zyrtec] 10 mg PO DAILY 04/17/22 04/17/22 History Cholecalciferol [Vitamin D3 (25 50 mcg PO DAILY 04/17/22 04/17/22 History Mcg = 1000 Iu)] Cyanocobalamin (Vitamin B-12) 1,000 mcg PO DAILY 04/17/22 04/17/22 History [Vitamin B-12] Escitalopram [Lexapro] 10 mg PO DAILY 04/17/22 04/17/22 History Famotidine [Pepcid] 20 mg PO BID 04/17/22 04/17/22 History Fluticasone Nasal [place] [Flonase 1 spray EA NOSTRIL DAILY 04/17/22 04/17/22 History Nasal [place]] Multivitamins, Thera [Multivitamin 1 tab PO DAILY 04/17/22 04/17/22 History (formulary)] Oxybutynin Chloride [Ditropan] 5 mg PO BID 04/17/22 04/17/22 History Oxybutynin Chloride [Ditropan] 5 mg PO BID PRN 04/17/22 04/17/22 History hydroCHLOROthiazide [Hydrodiuril] 25 mg PO DAILY 04/17/22 04/17/22 History lamoTRIgine 100 mg PO BID 04/17/22 04/17/22 History metFORMIN HCL 500 mg PO BID 04/17/22 04/17/22 History sitaGLIPtin [Januvia] 100 mg PO DAILY 04/17/22 04/17/22 History Allergies Allergy/AdvReac Type Severity Reaction Status Date / Time Sulfa (Sulfonamide AdvReac Rash/Hives Verified 04/17/22 18:24 Antibiotics) sulfamethoxazole AdvReac Rash/Hives Verified 04/17/22 18:24 [From Bactrim] trimethoprim [From Bactrim] AdvReac Rash/Hives Verified 04/17/22 18:24 Physical Exam Vitals: Vital Signs Temp Pulse Pulse Resp BP BP Pulse Ox 04/18/22 09:10 97.6 F 86 18 154/84 98 04/18/22 04:00 98.0 F 83 18 172/82 88 L 04/18/22 02:00 83 25 H 04/17/22 23:09 98.0 F 84 17 147/65 94 L 04/17/22 20:00 72 24 155/86 92 L 04/17/22 18:18 90 20 155/86 94 L 04/17/22 17:30 22 04/17/22 15:31 97.8 F 91 16 162/79 91 L Intake and Output 04/17/22 04/18/22 04/18/22 22:59 06:59 14:59 Other: Voiding Method Toilet # Voids 1 1 Weight 75.75 kg PHYSICAL EXAMINATION: Patient is lying in the bed comfortably, no acute distress, awake alert and oriented.. HEENT: Normocephalic. Neck is supple. Pupils reactive. Nostrils clear. Oral cavity is moist. Neck reveals no JVD, carotid bruits, or thyromegaly. CHEST EXAMINATION: Trachea is central. Symmetrical expansion. Lung corbett clear to auscultation and percussion. CARDIAC: Normal S1, S2 with no gallops. No murmurs ABDOMEN: Soft. Bowel sounds present. Nontender. No organomegaly. No abdominal bruits. Extremities: reveal no edema. No clubbing or cyanosis Neurologically awake, alert, oriented x3 with well-coordinated movements. No focal deficits noted Skin: No rash or skin lesions. Psychiatric: Coperative. Nonsuicidal, Musculoskeletal: No joint swelling or deformity. Normal range of motion. Results CBC & Chem 7: 04/19/22 07:11 04/19/22 07:11 Labs: Abnormal Lab Results - Last 24 Hours (Table) 04/17/22 04/17/22 04/17/22 Range/Units 17:12 17:12 17:12 Neutrophils # 8.2 H (1.3-7.7) k/uL D-Dimer 7.55 H (<0.60) mg/L FEU Sodium 118 L* (137-145) mmol/L Chloride 83 L (98-107) mmol/L BUN 6 L (7-17) mg/dL Creatinine 0.43 L (0.52-1.04) mg/dL Glucose 128 H (74-99) mg/dL POC Glucose (mg/dL) (70-110) mg/dL AST 70 H (14-36) U/L Alkaline Phosphatase 260 H (38-126) U/L 04/18/22 Range/Units 06:00 Neutrophils # (1.3-7.7) k/uL D-Dimer (<0.60) mg/L FEU Sodium (137-145) mmol/L Chloride (98-107) mmol/L BUN (7-17) mg/dL Creatinine (0.52-1.04) mg/dL Glucose (74-99) mg/dL POC Glucose (mg/dL) 160 H (70-110) mg/dL AST (14-36) U/L Alkaline Phosphatase (38-126) U/L Thrombosis Risk Factor Assmnt - DVT/VTE Prophylaxis DVT/VTE Prophylaxis: Pharmacologic Prophylaxis ordered - Choose All That Apply Each Factor Represents 1 point: Obesity (BMI >25), Serious lung disease incl. p neumonia (< 1month) Each Risk Factor Represents 2 Points: Age 61-74 years Each Risk Factor Represents 3 Points: History of DVT/PE Thrombosis Risk Factor Assessment Total Risk Factor Score: 7 Thrombosis Risk Factor Assessment Level: High Risk Assessment and Plan Assessment: Suspected metastatic pancreatic carcinoma. PET scan showed mass of the tail of the pancreas could be a tumor and elevated CA 19-9. Bilateral pleural effusions likely malignant Hyponatremia likely hypoosmolar. on thiazide diuretic Family history of pancreatic cancer Hypertension Hyperlipidemia Diabetes type 2 [id number] History of COVID-19 infection DVT prophylaxis with Lovenox subcu Plan: Patient will be continued on gentle IV hydration with normal saline. Pulmonary was consulted due to bilateral pleural effusions and is status post left thoracentesis. Patient is also status post right supraclavicular lymph node biopsy. Follow-up with fluid cytology and biopsy report. Continue with symptomatic management and follow-up closely. Prognosis poor at this time. Oncology will be consulted. Time with Patient: Greater than 30
[2022-04-18 23:34] LABS: LDH, Body Fluid Source Pleural Fluid; T. Protein, Body Fluid Source Pleural Fluid; Total Protein, Body Fluid 3620 mg/dL
[2022-04-19 02:06] LABS: Appearance,BF Clear
[2022-04-19] MEDS: ALPRAZolam 0.25 MG TAB PO PRN ×2 (04:26→13:38)
[2022-04-19 06:03] LABS: Glucose,Whole Blood 180 mg/dL (70-110)
[2022-04-19] MEDS: INSULIN ASPART (NovoLOG) 100 UNIT/ML VIAL SQ SCH ×3 (06:20→16:38)
[2022-04-19 07:39] LABS: Basophils % (A) 1 %; Eosinophils # (A) 0.2 k/uL (0-0.7); Eosinophils % (A) 3 %; HCT 38.5 % (34.0-46.0); HGB 12.6 gm/dL (11.4-16.0); Lymphocytes # (A) 0.6 k/uL (1.0-4.8); Lymphocytes % (A) 10 %; MCH 28.2 pg (25.0-35.0); MCHC 32.8 g/dL (31.0-37.0); MCV 85.9 fL (80.0-100.0); Mean Platelet Volume 8.4; Monocytes # (A) 0.5 k/uL (0-1.0); Monocytes % (A) 8 %; Neutrophils # (A) 4.9 k/uL (1.3-7.7); Neutrophils % (A) 76 %; Platelet Count 196 k/uL (150-450); RBC 4.48 m/uL (3.80-5.40); RDW 14.9 % (11.5-15.5); WBC 6.4 k/uL (3.8-10.6)
[2022-04-19 08:14] LABS: African American GFR (CKD) >90 (>60 ml/min/1.73 sqM); Anion Gap 9 mmol/L; Blood Urea Nitrogen 6 mg/dL (7-17); Calcium 8.6 mg/dL (8.4-10.2); Carbon Dioxide 29 mmol/L (22-30); Chloride 87 mmol/L (98-107); Glucose 170 mg/dL (74-99); Non-African American GFR(CKD) >90 (>60 ml/min/1.73 sqM); Potassium 3.4 mmol/L (3.5-5.1); Sodium 125 mmol/L (137-145)
[2022-04-19] MEDS ORDERED: MULTIVITAMINS, THERA 1 EACH TAB PO SCH (09:00)
[2022-04-19] MEDS ORDERED: FLUTICASONE 50MCG/SPRAY NASAL 16GM EA NOSTRIL SCH (09:00)
[2022-04-19] MEDS ORDERED: ENOXAPARIN 40 MG/0.4 ML SYRINGE SQ SCH (09:00)
--- NOTE | 2022-04-19 09:22 | P.CONS ---
History of Present Illness - Reason for Consult Consult date: 04/18/22 metastatic cancer, unknown primary Requesting physician: Dario Hguhes - Chief Complaint SOB, abn PET/CT - History of Present Illness Mrs. Singh is a pleasant 62-year-old female we have been consulted because of abnormal findings on imaging. Patient states that changes in her health started a few months ago. She had noticed a change in her breathing, more labored, more frequent cough, fatigue that is been persistent and progressive, appetite has been poor, reports unintentional weight loss of about 35 pounds. Patient denies any nausea, vomiting, change in bowel habits. She has a history of colon polyps, last colonoscopy was about 5 years ago in [place]. She has had mammograms and a few biopsies but, no personal history of cancer. She had a sister with breast cancer in her 30s, then diagnosed with pancreatic cancer and is now . She has 2 children one of them has a history of lung nodules that are being followed. Patient was referred to Pulmonary and she has seen Dr. Cantu. He ordered testing, PET scan done 04/14 showed rectal wall thickening, pulmonary nodules a pancreatic mass. Chest x-ray showing stents of nodular and interstitial infiltrates. CTA showed pulmonary masses and/infiltrate no PE. US of the liver showed a right liver mass, about 4 cm. US of the chest showing bilateral pleural effusions. Patient is on 2 L with an oxygen saturation of 88%, she reports being comfortable at rest but very short of breath with any activity. She denies any hemoptysis, chest pain or palpitations. She reports a history of very light smoking many years ago. No EtOH abuse or illicit drug use. Review of Systems 10 point review of systems is negative except as stated in HPI Past Medical History Past Medical History: Diabetes Mellitus, Hyperlipidemia History of Any Multi-Drug Resistant Organisms: None Reported Past Surgical History: Bariatric Surgery, Section, Hysterectomy, Tonsillectomy Past Psychological History: No Psychological Hx Reported Smoking Status: Former smoker Past Alcohol Use History: Rare Past Drug Use History: None Reported - Past Family History Mother Family Medical History: CVA/TIA Father Family Medical History: Congestive Heart Failure (CHF), Diabetes Mellitus Sister(s) Family Medical History: Cancer Additional Family Medical History / Comment(s): PANCREATIC CANCER, BREAST CANCER Medications and Allergies Home Medications Medication Instructions Recorded Confirmed Type ALPRAZolam [Xanax] 0.25 mg PO BID PRN 04/17/22 04/17/22 History ARIPiprazole [Abilify] 5 mg PO DAILY 04/17/22 04/17/22 History Albuterol Inhaler [Ventolin Hfa 1 - 2 puff INHALATION RT-Q6H PRN 04/17/22 0 04/17/22 History Inhaler] Atorvastatin Calcium 10 mg PO HS 04/17/22 04/17/22 History Cetirizine HCl [Zyrtec] 10 mg PO DAILY 04/17/22 04/17/22 History Cholecalciferol [Vitamin D3 (25 50 mcg PO DAILY 04/17/22 04/17/22 History Mcg = 1000 Iu)] Cyanocobalamin (Vitamin B-12) 1,000 mcg PO DAILY 04/17/22 04/17/22 History [Vitamin B-12] Escitalopram [Lexapro] 10 mg PO DAILY 04/17/22 04/17/22 History Famotidine [Pepcid] 20 mg PO BID 04/17/22 04/17/22 History Fluticasone Nasal [place] [Flonase 1 spray EA NOSTRIL DAILY 04/17/22 04/17/22 History Nasal [place]] Multivitamins, Thera [Multivitamin 1 tab PO DAILY 04/17/22 04/17/22 History (formulary)] Oxybutynin Chloride [Ditropan] 5 mg PO BID 04/17/22 04/17/22 History Oxybutynin Chloride [Ditropan] 5 mg PO BID PRN 04/17/22 04/17/22 History hydroCHLOROthiazide [Hydrodiuril] 25 mg PO DAILY 04/17/22 04/17/22 History lamoTRIgine 100 mg PO BID 04/17/22 04/17/22 History metFORMIN HCL 500 mg PO BID 04/17/22 04/17/22 History sitaGLIPtin [Januvia] 100 mg PO DAILY 04/17/22 04/17/22 History Allergies Allergy/AdvReac Type Severity Reaction Status Date / Time Sulfa (Sulfonamide AdvReac Rash/Hives Verified 04/17/22 18:24 Antibiotics) sulfamethoxazole AdvReac Rash/Hives Verified 04/17/22 18:24 [From Bactrim] trimethoprim [From Bactrim] AdvReac Rash/Hives Verified 04/17/22 18:24 Physical Exam Vitals: Vital Signs Temp Pulse Pulse Resp BP BP Pulse Ox 04/18/22 04:00 98.0 F 83 18 172/82 88 L 04/18/22 02:00 83 25 H 04/17/22 23:09 98.0 F 84 17 147/65 94 L 04/17/22 20:00 72 24 155/86 92 L 04/17/22 18:18 90 20 155/86 94 L 04/17/22 17:30 22 04/17/22 15:31 97.8 F 91 16 162/79 91 L Intake and Output 04/17/22 04/18/22 04/18/22 22:59 06:59 14:59 Other: Voiding Method Toilet # Voids 1 1 Weight 75.75 kg - Constitutional General appearance: average body habitus, cooperative, mild distress - EENT Eyes: anicteric sclerae, EOMI ENT: hearing grossly normal, normal oropharynx - Neck Neck: no lymphadenopathy - Respiratory Respiratory: bilateral: diminished - Cardiovascular Rhythm: regular Heart sounds: normal: S1, S2 Abnormal Heart Sounds: no systolic murmur, no diastolic murmur, no rub, no S3 Gallop, no S4 Gallop, no click, no other leg Peripheral Edema: bilateral: None - Gastrointestinal General gastrointestinal: no absent bowel sounds, no decreased bowel sounds, no distended, no hepatomegaly, no hyperactive bowel sounds, normal bowel sounds, no organomegaly, no rigid, no scaphoid, soft, no splenomegaly, no tenderness, no umbilical hernia, no ventral hernia - Integumentary Integumentary: normal - Neurologic Neurologic: CNII-XII intact - Musculoskeletal Musculoskeletal: strength equal bilaterally - Psychiatric Psychiatric: A&O x's 3, appropriate affect, intact judgment & insight Results CBC & Chem 7: 04/18/22 10:32 04/18/22 10:32 Labs: Abnormal Lab Results - Last 24 Hours (Table) 04/17/22 04/17/22 04/17/22 Range/Units 17:12 17:12 17:12 Neutrophils # 8.2 H (1.3-7.7) k/uL D-Dimer 7.55 H (<0.60) mg/L FEU Sodium 118 L* (137-145) mmol/L Chloride 83 L (98-107) mmol/L BUN 6 L (7-17) mg/dL Creatinine 0.43 L (0.52-1.04) mg/dL Glucose 128 H (74-99) mg/dL POC Glucose (mg/dL) (70-110) mg/dL AST 70 H (14-36) U/L Alkaline Phosphatase 260 H (38-126) U/L 04/18/22 Range/Units 06:00 Neutrophils # (1.3-7.7) k/uL D-Dimer (<0.60) mg/L FEU Sodium (137-145) mmol/L Chloride (98-107) mmol/L BUN (7-17) mg/dL Creatinine (0.52-1.04) mg/dL Glucose (74-99) mg/dL POC Glucose (mg/dL) 160 H (70-110) mg/dL AST (14-36) U/L Alkaline Phosphatase (38-126) U/L Comments: PET/CT from 04/14-report reviewed ultrasound of the chest-report reviewed Chest x-ray: report reviewed CT scan - chest: report reviewed US - abdomen: report reviewed Assessment and Plan Plan: Did discuss with the patient and her the concerning findings on imaging. Case was discussed with Pulmonary. Work up was being done for progressive SOB. A CA-19-9 was drawn in the office, it is reported in the system, the number was greater than 10,000. It was discussed with the patient options for biopsy. Least invasive way is going to be a biopsy of the liver. Pulmonary is going to discuss with Interventional Radiology. Bedside thoracentesis is planned to remove the fluid from the pleural effusions to see if they can make patient's breathing more comfortable. Specimen will be sent for cytology. Pending pathology results. We'll continue to follow with patient.
[2022-04-19] MEDS: lamoTRIgine 100 MG TAB PO SCH (09:36)
[2022-04-19] MEDS: ARIPiprazole 5 MG TAB PO SCH (09:37)
[2022-04-19] MEDS: FAMOTIDINE 20 MG TAB PO SCH (09:37)
[2022-04-19] MEDS: OXYBUTYNIN CHLORIDE 5 MG TAB PO SCH (09:37)
[2022-04-19] MEDS: ESCITALOPRAM 10 MG TAB PO SCH (09:37)
[2022-04-19 10:42] VITALS: RESP 18
[2022-04-19 11:48] LABS: Glucose,Whole Blood 178 mg/dL (70-110)
[2022-04-19 12:00] LABS: Glucose, BF Source Pleural Fluid; Glucose, Body Fluid 149 mg/dL
[2022-04-19] MEDS: SODIUM CHLORIDE 0.9% 1,000 ML IV SCH (12:19)
[2022-04-19] MEDS ORDERED: Potassium Replacement Protocol 1 EACH MISC MISCELLANE PRN (13:12)
[2022-04-19 13:28] VITALS: TEMP 98
[2022-04-19] MEDS ORDERED: POTASSIUM CHLORIDE 10 MEQ in WATER FOR INJECTION 1 100ML.BAG IVPB SCH (14:00)
[2022-04-19] MEDS: POTASSIUM BICARBONATE/CIT AC 20 MEQ TABLET.EFF NG-TUBE SCH ×2 (15:19→16:37)
[2022-04-19 16:02] VITALS: PULSE 87
[2022-04-19 16:25] LABS: Glucose,Whole Blood 170 mg/dL (70-110)
--- NOTE | 2022-04-19 16:35 | P.PN ---
Subjective Progress Note Date: 04/19/22 This is a 62-year-old female who is quite familiar to my service. 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 Patient is known to have history of hypertension, GERD, dyslipidemia, type 2 diabetes, remote smoking history, and she quit smoking over 25 years ago. She has family history of pancreatic cancer, and she has been losing weight roughly 30 pounds in the last 2 months. She had a CT of the chest that came back showing multiple parenchymal masses mediastinal adenopathy moderate pericardial effusion bilate ral pleural effusions and a liver mass. After evaluating the patient, I felt that most likely were dealing with pancreatic cancer with lymphangitic carcinomatosis hence I recommended a PET scan, I also recommended a CA 199, I have also recommended follow-up on outpatient basis to possibly consider bronchoscopy with transbronchial biopsy of what seems to be a right upper lobe nodule/mass although the patient had multiple pulmonary nodules noted bilaterally in both lungs. Patient was given a follow-up appointment to see me in the office next week, however yesterday the patient was developing worsening symptoms of shortness of breath, hence she came into the ER. Her PET scan which was done recently clearly showed significant uptake in her pulmonary nodules, mediastinal nodes, liver mass, and a pancreatic mass. That went ahead to confirm that this is most likely a pancreatic cancer with metastasis. CA 199 came back over 10,000. At any rate patient was admitted, today I saw the humza ent, and I recommended a right-sided thoracentesis for diagnostic purposes, I also discussed the case with the interventional radiologist who reviewed the PET scan and a CT of the chest, and he felt that he could easily access the supraclavicular lymph nodes on the right side, and we'll perform a tissue diagnosis. Today the patient underwent both procedures including thoracentesis and FNA of right supraclavicular lymph node. Both procedures may or may not give us a specific diagnosis, however if no diagnosis is made we can definitely consider liver biopsy we can also do consider navigational bronchoscopy and transbronchial biopsy of the right upper lobe. Clinically I am strongly suspicious of pancreatic carcinoma with lymphangitic carcinomatosis. The patient is seen today's of [facility] 28 2022 in follow-up on the selective care unit. She is currently sitting up in a chair at the bedside. Awake and alert in no acute distress. Denies any worsening shortness of breath, cough or conge stion. She is maintaining good O2 saturation in the 90s on room air. She's afebrile. Hemodynamically stable. She did undergo a fine-needle aspirate of the right supraclavicular lymph node per interventional radiology. Pathology pending. Right sided pleural fluid pathology pending as well. Objective - Vital Signs Vital signs: Vital Signs Temp 98.0 F 04/19/22 12:00 Pulse 87 04/19/22 14:00 Resp 18 04/19/22 12:00 BP 134/77 04/19/22 12:00 Pulse Ox 92 L 04/19/22 12:00 FiO2 Intake & Output 04/18/22 04/19/22 04/19/22 18:59 06:59 18:59 Intake Total 720 702 Balance 720 702 Weight 75.75 kg Intake: Oral 720 702 Other: Voiding Method Toilet Toilet Toilet # Voids 1 - Exam GENERAL EXAM: Alert, pleasant 62-year-old female patient, up in a chair, on room air, comfortable in no apparent distress. HEAD: Normocephalic. EYES: Normal reaction of pupils, equal size. NOSE: Clear with pink turbinates. THROAT: No erythema or exudates. NECK: No masses, no JVD. CHEST: No chest wall deformity. LUNGS: Equal air entry with crackles in the right base. CVS: S1 and S2 normal with no audible murmur, regular rhythm. ABDOMEN: No hepatosplenomegaly, normal bowel sounds, no guarding or rigidity. SPINE: No scoliosis or deformity SKIN: No rashes CENTRAL NERVOUS SYSTEM: No focal deficits, tone is normal in all 4 extremities. EXTREMITIES: There is no peripheral edema. No clubbing, no cyanosis. Peripheral pulses are intact. - Labs CBC & Chem 7: 04/19/22 07:11 04/19/22 07:11 Labs: Abnormal Lab Results - Last 24 Hours (Table) 04/18/22 04/18/22 04/18/22 Range/Units 16:52 18:54 20:18 Lymphocytes # (1.0-4.8) k/uL Sodium (137-145) mmol/L Potassium (3.5-5.1) mmol/L Chloride (98-107) mmol/L BUN (7-17) mg/dL Glucose (74-99) mg/dL POC Glucose (mg/dL) 235 H 227 H 125 H (70-110) mg/dL Osmolality (280-301) mosm/kg Lactate Dehydrogenase (313-618) U/L Total Protein (6.3-8.2) g/dL Ur Random Sodium (40-220) mmol/L 04/18/22 04/19/22 04/19/22 Range/Units 21:42 04:30 06:01 Lymphocytes # (1.0-4.8) k/uL Sodium (137-145) mmol/L Potassium (3.5-5.1) mmol/L Chloride (98-107) mmol/L BUN (7-17) mg/dL Glucose (74-99) mg/dL POC Glucose (mg/dL) 180 H (70-110) mg/dL Osmolality (280-301) mosm/kg Lactate Dehydrogenase 749 H (313-618) U/L Total Protein 6.2 L (6.3-8.2) g/dL Ur Random Sodium <20 L (40-220) mmol/L 04/19/22 04/19/22 04/19/22 Range/Units 07:11 07:11 11:35 Lymphocytes # 0.6 L (1.0-4.8) k/uL Sodium 125 L (137-145) mmol/L Potassium 3.4 L (3.5-5.1) mmol/L Chloride 87 L (98-107) mmol/L BUN 6 L (7-17) mg/dL Glucose 170 H (74-99) mg/dL POC Glucose (mg/dL) 178 H (70-110) mg/dL Osmolality 265 L (280-301) mosm/kg Lactate Dehydrogenase (313-618) U/L Total Protein (6.3-8.2) g/dL Ur Random Sodium (40-220) mmol/L 04/19/22 Range/Units 16:24 Lymphocytes # (1.0-4.8) k/uL Sodium (137-145) mmol/L Potassium (3.5-5.1) mmol/L Chloride (98-107) mmol/L BUN (7-17) mg/dL Glucose (74-99) mg/dL POC Glucose (mg/dL) 170 H (70-110) mg/dL Osmolality (280-301) mosm/kg Lactate Dehydrogenase (313-618) U/L Total Protein (6.3-8.2) g/dL Ur Random Sodium (40-220) mmol/L Microbiology - Last 24 Hours (Table) 04/18/22 11:20 Gram Stain - Preliminary Pleural Fluid Body Fluid Culture - Preliminary 04/18/22 11:20 Acid Fast Bacilli Culture - Preliminary Pleural Fluid 04/18/22 11:20 Fungal Culture - Preliminary Pleural Fluid Assessment and Plan Assessment: Suspect metastatic adenocarcinoma, possibly pancreatic carcinoma with lymphangitic carcinomatosis unless proven otherwise. Bilateral pleural effusions possibly malignant, status post right-sided thoracentesis was 700 ML's of fluid removed, pathology pending Lymphadenopathy status post right supra clavicular fine-needle aspirate, pathology pending Pericardial effusion without tamponade seen on recent echocardiogram. Multiple pulmonary nodules consistent with metastatic disease to the lungs Restrictive lung disease as noted on the recent PFT. Family history of pancreatic cancer. History of COVID-19 infection Type 2 diabetes without complications Essential hypertension History of depression Dyslipidemia Plan: The patient was seen and evaluated Pathology of FNA of right supraclavicular neck node pending Pleural fluid cytology pending Stable from pulmonary standpoint We will continue to follow and make further recommendations based on her clinical status I have personally seen and examined the patient, performed the documentation and the assessment and plan as written. Number of minutes spent on the visit: 10.
[2022-04-19 17:03] VITALS: BP 141/82
[2022-04-19 19:15] LABS: Appearance,BF Hazy
== END 2022-04-19 18:18 | disposition home or self-care (01) | DRG 841 ==
LOC: EC 15:20 → 3SCARD 19:39
PROVIDERS: ADMIT Hospitalist; ATTEND Hospitalist
PROC: 0W993ZX Drainage of Right Pleural Cavity, Percutaneous Approach, Diagnostic (ICD-10-PCS; principal; 2022-04-18)
PROC: 07D13ZX Extraction of Right Neck Lymphatic, Percutaneous Approach, Diagnostic (ICD-10-PCS; 2022-04-18)
DX: C77.9 Secondary and unspecified malignant neoplasm of lymph node, unspecified (principal); C25.9 Malignant neoplasm of pancreas, unspecified; C78.00 Secondary malignant neoplasm of unspecified lung; C78.7 Secondary malignant neoplasm of liver and intrahepatic bile duct; E87.1 Hypo-osmolality and hyponatremia; I31.3 Pericardial effusion (noninflammatory); J90 Pleural effusion, not elsewhere classified; E11.9 Type 2 diabetes mellitus without complications; E78.5 Hyperlipidemia, unspecified; I10 Essential (primary) hypertension; J98.4 Other disorders of lung; R09.02 Hypoxemia; Z79.84 Long term (current) use of oral hypoglycemic drugs; Z79.899 Other long term (current) drug therapy; Z80.0 Family history of malignant neoplasm of digestive organs; Z80.3 Family history of malignant neoplasm of breast; Z86.16 Personal history of COVID-19; Z86.718 Personal history of other venous thrombosis and embolism; Z87.19 Personal history of other diseases of the digestive system; Z87.891 Personal history of nicotine dependence
CPT/HCPCS: 10005; 36415; 71045; 71046; 71275; 76604; 76705; 80048; 80053; 82945; 83605; 83615; 83735; 83880; 83930; 83935; 84155; 84157; 84300; 85025; 85379; 85610; 85730; 87070; 87102; 87116; 87205; 87206; 87252; 87496; 87498; 87502; 87529; 87634; 87635; 87798; 88108; 88173; 88305; 88341; 88342; 89050; 93005; 99291

== ENCOUNTER 2022-04-20 00:35 | Inpatient (IN) | payer OTHER ==
--- NOTE | 2022-04-20 01:05 | ED ---
SOB HPI - General Chief Complaint: Shortness of Breath Stated Complaint: BRITTANI,Just left here today Time Seen by Provider: 04/20/22 01:04 Source: patient, family, RN notes reviewed, old records reviewed, Caregiver Mode of arrival: wheelchair Limitations: no limitations - History of Present Illness Initial Comments: This is a 62-year-old female with severe shortness of breath weakness dehydration, mild nausea no vomiting. No chest pain. Recent hospital admission for heart failure. Most sodium. Patient's sodium is significantly low again is well has significant lower extremity edema and shortness of breath currently. No chest pain. MD Complaint: shortness of breath, pain with inspiration -: days(s) Radiation: back Severity: moderate Severity scale (1-10): 4 Quality: dull Consistency: constant Improves With: nothing Worsens With: nothing Known History Of: congestive heart failure Context: recent URI, recent illness Associated Symptoms: denies other symptoms Treatments Prior to Arrival: none - Related Data Home Oxygen Therapy: Yes Home Medications Medication Instructions Recorded Confirmed ARIPiprazole [Abilify] 5 mg PO DAILY 04/17/22 04/20/22 Albuterol Inhaler [Ventolin Hfa 1 - 2 puff INHALATION RT-Q6H PRN 04/17/22 04/20/22 Inhaler] Atorvastatin Calcium 10 mg PO HS 04/17/22 04/20/22 Cetirizine HCl [Zyrtec] 10 mg PO DAILY 04/17/22 04/20/22 Cholecalciferol [Vitamin D3 (25 50 mcg PO DAILY 04/17/22 04/20/22 Mcg = 1000 Iu)] Cyanocobalamin (Vitamin B-12) 1,000 mcg PO DAILY 04/17/22 04/20/22 [Vitamin B-12] Escitalopram [Lexapro] 10 mg PO DAILY 04/17/22 04/20/22 Famotidine [Pepcid] 20 mg PO BID 04/17/22 04/20/22 Fluticasone Nasal [place] [Flonase 1 spray EA NOSTRIL DAILY 04/17/22 04/20/22 Nasal [place]] Multivitamins, Thera [Multivitamin 1 tab PO DAILY 04/17/22 04/20/22 (formulary)] Oxybutynin Chloride [Ditropan] 5 mg PO BID 04/17/22 04/20/22 Oxybutynin Chloride [Ditropan] 5 mg PO BID PRN 04/17/22 04/20/22 lamoTRIgine 100 mg PO BID 04/17/22 04/20/22 metFORMIN HCL 500 mg PO BID 04/17/22 04/20/22 sitaGLIPtin [Januvia] 100 mg PO DAILY 04/17/22 04/20/22 Previous Rx's Medication Instructions Recorded ALPRAZolam [Xanax] 0.25 mg PO TID 3 Days #9 tab 04/21/22 Furosemide [Lasix] 20 mg PO DAILY #30 tab 04/21/22 lisinopriL [Zestril] 2.5 mg PO DAILY #30 tab 04/21/22 Allergies Allergy/AdvReac Type Severity Reaction Status Date / Time Sulfa (Sulfonamide Allergy Rash/Hives Verified 04/20/22 08:50 Antibiotics) sulfamethoxazole Allergy Rash/Hives Verified 04/20/22 08:50 [From Bactrim] trimethoprim [From Bactrim] Allergy Rash/Hives Verified 04/20/22 08:50 Review of Systems ROS Statement: Those systems with pertinent positive or pertinent negative responses have been documented in the HPI. ROS Other: All systems not noted in ROS Statement are negative. Past Medical History Past Medical History: Cancer, Diabetes Mellitus, Hyperlipidemia Additional Past Medical History / Comment(s): Lung and pancreatic CA History of Any Multi-Drug Resistant Organisms: None Reported Past Surgical History: Bariatric Surgery, Section, Hysterectomy, Tonsillectomy Past Psychological History: No Psychological Hx Reported Smoking Status: Former smoker Past Alcohol Use History: Rare Past Drug Use History: None Reported - Past Family History Mother Family Medical History: CVA/TIA Father Family Medical History: Congestive Heart Failure (CHF), Diabetes Mellitus Sister(s) Family Medical History: Cancer Additional Family Medical History / Comment(s): PANCREATIC CANCER, BREAST CANCER General Exam Limitations: no limitations General appearance: alert, in no apparent distress Head exam: Present: atraumatic, normocephalic, normal inspection Eye exam: Present: normal appearance, PERRL, EOMI. Absent: scleral icterus, conjunctival injection, periorbital swelling ENT exam: Present: normal exam, mucous membranes moist Neck exam: Present: normal inspection. Absent: tenderness, meningismus, lymphadenopathy Respiratory exam: Present: normal lung sounds bilaterally. Absent: respiratory distress, wheezes, rales, rhonchi, stridor Cardiovascular Exam: Present: regular rate, normal rhythm, normal heart sounds. Absent: systolic murmur, diastolic murmur, rubs, gallop, clicks GI/Abdominal exam: Present: soft, normal bowel sounds. Absent: distended, tenderness, guarding, rebound, rigid Extremities exam: Present: normal inspection, full ROM, normal capillary refill. Absent: tenderness, pedal edema, joint swelling, calf tenderness Back exam: Present: normal inspection Neurological exam: Present: alert, oriented X3, CN II-XII intact Psychiatric exam: Present: normal affect, normal mood Skin exam: Present: warm, dry, intact, normal color. Absent: rash Course Vital Signs 04/20/22 04/20/22 04/20/22 00:46 04:06 04:13 Temperature 98.2 F Pulse Rate 98 81 85 Pulse Rate [ Pulse Oximetery ] Respiratory 16 Rate Blood Pressure 162/85 Blood Pressure [Right Arm] O2 Sat by Pulse 89 L Oximetry 04/20/22 04:30 Temperature 98.1 F Pulse Rate Pulse Rate [ 90 Pulse Oximetery ] Respiratory 18 Rate Blood Pressure Blood Pressure 137/75 [Right Arm] O2 Sat by Pulse 94 L Oximetry - Reevaluation(s) Reevaluation #1: Medical record is reviewed Symptoms have been improved here in the ER Patient informed results and questions answered Medical Decision Making - Medical Decision Making 62 male with known for CHF and pulmonary edema coming in with worsening of the above. Patient is a recent discharge and will be admitted for further evaluation management - Lab Data Result diagrams: 04/20/22 01:32 04/21/22 09:06 Lab Results 04/20/22 04/20/22 04/20/22 Range/Units 01:32 01:32 01:32 WBC 8.5 (3.8-10.6) k/uL RBC 4.67 (3.80-5.40) m/uL Hgb 13.1 (11.4-16.0) gm/dL Hct 39.7 (34.0-46.0) % MCV 85.0 (80.0-100.0) fL MCH 28.0 (25.0-35.0) pg MCHC 33.0 (31.0-37.0) g/dL RDW 14.7 (11.5-15.5) % Plt Count 225 (150-450) k/uL MPV 8.2 Neutrophils % 81 % Lymphocytes % 8 % Monocytes % 8 % Eosinophils % 2 % Basophils % 1 % Neutrophils # 6.9 (1.3-7.7) k/uL Lymphocytes # 0.7 L (1.0-4.8) k/uL Monocytes # 0.6 (0-1.0) k/uL Eosinophils # 0.2 (0-0.7) k/uL Basophils # 0.0 (0-0.2) k/uL PT 10.1 (9.0-12.0) sec INR 0.9 (<1.2) APTT 24.2 (22.0-30.0) sec Sodium 126 L (137-145) mmol/L Potassium 4.4 (3.5-5.1) mmol/L Chloride 90 L (98-107) mmol/L Carbon Dioxide 25 (22-30) mmol/L Anion Gap 11 mmol/L BUN 8 (7-17) mg/dL Creatinine 0.46 L (0.52-1.04) mg/dL Est GFR (CKD-EPI)AfAm >90 (>60 ml/min/1.73 sqM) Est GFR (CKD-EPI)NonAf >90 (>60 ml/min/1.73 sqM) Glucose 180 H (74-99) mg/dL Estimated Ave Glu mg/dL Hemoglobin A1c (0.0-6.0) % Plasma Lactic Acid De (0.7-2.0) mmol/L Calcium 9.2 (8.4-10.2) mg/dL Magnesium 2.0 (1.6-2.3) mg/dL Total Bilirubin 1.1 (0.2-1.3) mg/dL AST 75 H (14-36) U/L ALT 31 (4-34) U/L Alkaline Phosphatase 267 H (38-126) U/L Troponin I (0.000-0.034) ng/mL NT-Pro-B Natriuret Pep pg/mL Total Protein 6.7 (6.3-8.2) g/dL Albumin 4.1 (3.5-5.0) g/dL 04/20/22 04/20/22 04/20/22 Range/Units 01:32 01:32 01:32 WBC (3.8-10.6) k/uL RBC (3.80-5.40) m/uL Hgb (11.4-16.0) gm/dL Hct (34.0-46.0) % MCV (80.0-100.0) fL MCH (25.0-35.0) pg MCHC (31.0-37.0) g/dL RDW (11.5-15.5) % Plt Count (150-450) k/uL MPV Neutrophils % % Lymphocytes % % Monocytes % % Eosinophils % % Basophils % % Neutrophils # (1.3-7.7) k/uL Lymphocytes # (1.0-4.8) k/uL Monocytes # (0-1.0) k/uL Eosinophils # (0-0.7) k/uL Basophils # (0-0.2) k/uL PT (9.0-12.0) sec INR (<1.2) APTT (22.0-30.0) sec Sodium (137-145) mmol/L Potassium (3.5-5.1) mmol/L Chloride (98-107) mmol/L Carbon Dioxide (22-30) mmol/L Anion Gap mmol/L BUN (7-17) mg/dL Creatinine (0.52-1.04) mg/dL Est GFR (CKD-EPI)AfAm (>60 ml/min/1.73 sqM) Est GFR (CKD-EPI)NonAf (>60 ml/min/1.73 sqM) Glucose (74-99) mg/dL Estimated Ave Glu mg/dL Hemoglobin A1c (0.0-6.0) % Plasma Lactic Acid De 1.2 (0.7-2.0) mmol/L Calcium (8.4-10.2) mg/dL Magnesium (1.6-2.3) mg/dL Total Bilirubin (0.2-1.3) mg/dL AST (14-36) U/L ALT (4-34) U/L Alkaline Phosphatase (38-126) U/L Troponin I 0.081 H* (0.000-0.034) ng/mL NT-Pro-B Natriuret Pep 636 pg/mL Total Protein (6.3-8.2) g/dL Albumin (3.5-5.0) g/dL 04/20/22 Range/Units 01:32 WBC (3.8-10.6) k/uL RBC (3.80-5.40) m/uL Hgb (11.4-16.0) gm/dL Hct (34.0-46.0) % MCV (80.0-100.0) fL MCH (25.0-35.0) pg MCHC (31.0-37.0) g/dL RDW (11.5-15.5) % Plt Count (150-450) k/uL MPV Neutrophils % % Lymphocytes % % Monocytes % % Eosinophils % % Basophils % % Neutrophils # (1.3-7.7) k/uL Lymphocytes # (1.0-4.8) k/uL Monocytes # (0-1.0) k/uL Eosinophils # (0-0.7) k/uL Basophils # (0-0.2) k/uL PT (9.0-12.0) sec INR (<1.2) APTT (22.0-30.0) sec Sodium (137-145) mmol/L Potassium (3.5-5.1) mmol/L Chloride (98-107) mmol/L Carbon Dioxide (22-30) mmol/L Anion Gap mmol/L BUN (7-17) mg/dL Creatinine (0.52-1.04) mg/dL Est GFR (CKD-EPI)AfAm (>60 ml/min/1.73 sqM) Est GFR (CKD-EPI)NonAf (>60 ml/min/1.73 sqM) Glucose (74-99) mg/dL Estimated Ave Glu mg/dL 153 Hemoglobin A1c 7.0 H (0.0-6.0) % Plasma Lactic Acid De (0.7-2.0) mmol/L Calcium (8.4-10.2) mg/dL Magnesium (1.6-2.3) mg/dL Total Bilirubin (0.2-1.3) mg/dL AST (14-36) U/L ALT (4-34) U/L Alkaline Phosphatase (38-126) U/L Troponin I (0.000-0.034) ng/mL NT-Pro-B Natriuret Pep pg/mL Total Protein (6.3-8.2) g/dL Albumin (3.5-5.0) g/dL - EKG Data -: EKG Interpreted by Me (EKG is sinus 92 AL 163 QRS 67 QTC 370) - Radiology Data Radiology results: report reviewed (This x-rays worsening CHF and pulmonary edema), image reviewed Disposition Clinical Impression: Metastatic cancer, Hyponatremia, Hypoxia, Congestive heart failure, Acute pulmonary edema Disposition: ADMITTED IP TO THIS HOSP Is patient prescribed a controlled substance at d/c from ED?: No Time of Disposition: 03:05
[2022-04-20 01:45] LABS: Basophils % (A) 1 %; Eosinophils # (A) 0.2 k/uL (0-0.7); Eosinophils % (A) 2 %; HCT 39.7 % (34.0-46.0); HGB 13.1 gm/dL (11.4-16.0); Lymphocytes # (A) 0.7 k/uL (1.0-4.8); Lymphocytes % (A) 8 %; Mean Platelet Volume 8.2; Monocytes # (A) 0.6 k/uL (0-1.0); Monocytes % (A) 8 %; Neutrophils # (A) 6.9 k/uL (1.3-7.7); Neutrophils % (A) 81 %; Platelet Count 225 k/uL (150-450); RBC 4.67 m/uL (3.80-5.40); RDW 14.7 % (11.5-15.5); WBC 8.5 k/uL (3.8-10.6)
[2022-04-20 01:57] LABS: INR 0.9 (<1.2); Partial Thromboplastin Time 24.2 sec (22.0-30.0); Prothrombin Time 10.1 sec (9.0-12.0)
[2022-04-20 02:17] LABS: ALT 31 U/L (4-34); African American GFR (CKD) >90 (>60 ml/min/1.73 sqM); Anion Gap 11 mmol/L; Blood Urea Nitrogen 8 mg/dL (7-17); Calcium 9.2 mg/dL (8.4-10.2); Carbon Dioxide 25 mmol/L (22-30); Chloride 90 mmol/L (98-107); Glucose 180 mg/dL (74-99); Non-African American GFR(CKD) >90 (>60 ml/min/1.73 sqM); Sodium 126 mmol/L (137-145)
[2022-04-20 02:21] LABS: AST 75 U/L (14-36); Albumin 4.1 g/dL (3.5-5.0); Alkaline Phosphatase 267 U/L (38-126); Potassium 4.4 mmol/L (3.5-5.1); Total Bilirubin 1.1 mg/dL (0.2-1.3); Total Protein 6.7 g/dL (6.3-8.2)
--- NOTE | 2022-04-20 02:21 | XR ---
EXAMINATION TYPE: XR chest 2V DATE OF EXAM: 04/20/2022 COMPARISON: 04/18/2022 HISTORY: Thoracentesis. Pain TECHNIQUE: 2 views FINDINGS: There is diffuse coronary interstitial and airspace edema. Heart is top normal in size. The re is some blunting of the costophrenic angles. IMPRESSION: Moderately severe pulmonary edema which is slightly worse than recent exam.
[2022-04-20] MEDS ORDERED: IPRATROPIUM-ALBUTEROL 3 ML NEB INHALATION STA (03:07)
[2022-04-20] MEDS ORDERED: IPRATROPIUM-ALBUTEROL 3 ML NEB INHALATION PRN (03:07)
[2022-04-20] MEDS: FUROSEMIDE 10 MG/ML 4 ML VIAL IV SCH ×2 (03:47→17:08)
[2022-04-20 06:21] LABS: Glucose,Whole Blood 219 mg/dL (70-110)
[2022-04-20] MEDS: ACETAMINOPHEN TAB 325 MG TAB PO PRN ×3 (06:36→20:12)
[2022-04-20] MEDS: INSULIN ASPART (NovoLOG) 100 UNIT/ML VIAL SQ SCH ×4 (06:41→21:07)
[2022-04-20] MEDS ORDERED: ALPRAZolam 0.25 MG TAB PO PRN (09:17)
[2022-04-20] MEDS: CYANOCOBALAMIN 500 MCG TAB PO SCH (09:44)
[2022-04-20] MEDS: ARIPiprazole 5 MG TAB PO SCH (09:44)
[2022-04-20] MEDS: LORATADINE 10 MG TAB PO SCH (09:44)
[2022-04-20] MEDS: OXYBUTYNIN CHLORIDE 5 MG TAB PO SCH ×2 (09:44→21:07)
[2022-04-20] MEDS: lamoTRIgine 100 MG TAB PO SCH ×2 (09:45→21:07)
[2022-04-20] MEDS: ESCITALOPRAM 10 MG TAB PO SCH (09:45)
[2022-04-20] MEDS: FLUTICASONE 50MCG/SPRAY NASAL 16GM EA NOSTRIL SCH (09:46)
[2022-04-20 11:31] LABS: Glucose,Whole Blood 181 mg/dL (70-110)
[2022-04-20 11:45] VITALS: BMI 27.8
--- NOTE | 2022-04-20 16:05 | P.CNPUL ---
History of Present Illness Consult date: 04/20/22 Requesting physician: Sebastian Diggs Reason for consult: dyspnea, lung mass, abnormal CXR/CT Chief complaint: Shortness of breath History of present illness: This is a 62-year-old female patient with a recent abnormal CT of the chest showing multiple pulmonary nodules and what seems to be a lymphangitic carcinomatosis involving both lungs. Patient is known to have history of hypertension, GERD, dyslipidemia, type 2 diabetes, remote smoking history, and she quit smoking over 25 years ago. She has family history of pancreatic cancer, and she has been losing weight roughly 30 pounds in the last 2 months. She had a CT of the chest that came back showing multiple parenchymal masses mediastinal adenopathy moderate pericardial effusion bilateral pleural effusions and a liver mass. After evaluating the patient, it was felt that we were most likely were dealing with pancreatic cancer with lymphangitic carcinomatosis with a CA 199. Her PET scan which was done recently clearly showed significant uptake in her pulmonary nodules, mediastinal nodes, liver mass, and a pancreatic mass. That went ahead to confirm that this is most likely a pancreatic cancer with metastasis. CA 199 came back over 10,000. She is having a right-sided thoracentesis 04/18/2022 during her recent admission for pleural effusion that was positive for metastatic adenocarcinoma. Within the differential included pulmonary primary adenocarcinoma and pancreaticobiliary adenocarcinoma. , She also had an image guided right supraclavicular clavicular lymph node biopsy that was positive for metastatic adenocarcinoma having features suggestive of lung primary. She was subsequently discharged home yesterday however she developed increasing shortness of breath every presented here to the emergency room last n ight. Chest x-ray continues to show moderately severe pulmonary edema which slightly worse compared to previous. There is diffuse interstitial and airspace edema. She is seen today in consultation on the regular medical floor. She is sitting up in a chair at the bedside. She is maintaining O2 saturations in the mid 90s on 2 L/m per nasal cannula. She's afebrile. Hemodynamically stable. White count 8.5. Hemoglobin 13.1. Platelets 225. Sodium 126. Potassium 4.4. BUN 8. Creatinine 0.46. ProBNP 636. Review of Systems REVIEW OF SYSTEMS: CONSTITUTIONAL: Denies any recent significant weight loss or weight gain. EYES: Denies change in vision. EARS, NOSE, MOUTH, THROAT: Denies headaches, denies sore throat. CARDIOVASCULAR: Denies chest pain, palpitations or syncopal episodes. RESPIRATORY: Positive for shortness of breath, cough, congestion no hemoptysis. GASTROINTESTINAL: Denies change in appetite, denies abdominal pain GENITOURINARY: Denies hematuria, denies infections. MUSKULOSKELETAL: Denies pain, denies swelling. INTEGUMENTARY: Denies rash, denies eczema. NEUROLOGICAL: Denies recent memory loss, no recent seizure activity. PSYCHIATRIC: Denies anxiety, denies depression. HEMATOLOGIC/LYMPHATIC: Denies anemia, denies enlarged lymph nodes. Past Medical History Past Medical History: Cancer, Diabetes Mellitus, Hyperlipidemia Additional Past Medical History / Comment(s): pancreatic CA with lung mets History of Any Multi-Drug Resistant Organisms: None Reported Past Surgical History: Bariatric Surgery, Section, Hysterectomy, Tonsillectomy Past Anesthesia/Blood Transfusion Reactions: No Reported Reaction Past Psychological History: No Psychological Hx Reported Smoking Status: Former smoker Past Alcohol Use History: Rare Past Drug Use History: None Reported - Past Family History Mother Family Medical History: CVA/TIA Father Family Medical History: Congestive Heart Failure (CHF), Diabetes Mellitus Sister(s) Family Medical History: Cancer Additional Family Medical History / Comment(s): PANCREATIC CANCER, BREAST CANCER Medications and Allergies Home Medications Medication Instructions Recorded Confirmed Type ALPRAZolam [Xanax] 0.25 mg PO BID PRN 04/17/22 04/20/22 History ARIPiprazole [Abilify] 5 mg PO DAILY 04/17/22 04/20/22 History Albuterol Inhaler [Ventolin Hfa 1 - 2 puff INHALATION RT-Q6H PRN 04/17/22 04/20/22 History Inhaler] Atorvastatin Calcium 10 mg PO HS 04/17/22 04/20/22 History Cetirizine HCl [Zyrtec] 10 mg PO DAILY 04/17/22 04/20/22 History Cholecalciferol [Vitamin D3 (25 50 mcg PO DAILY 04/17/22 04/20/22 History Mcg = 1000 Iu)] Cyanocobalamin (Vitamin B-12) 1,000 mcg PO DAILY 04/17/22 04/20/22 History [Vitamin B-12] Escitalopram [Lexapro] 10 mg PO DAILY 04/17/22 04/20/22 History Famotidine [Pepcid] 20 mg PO BID 04/17/22 04/20/22 History Fluticasone Nasal [place] [Flonase 1 spray EA NOSTRIL DAILY 04/17/22 04/20/22 History Nasal [place]] Multivitamins, Thera [Multivitamin 1 tab PO DAILY 04/17/22 04/20/22 History (formulary)] Oxybutynin Chloride [Ditropan] 5 mg PO BID 04/17/22 04/20/22 History Oxybutynin Chloride [Ditropan] 5 mg PO BID PRN 04/17/22 04/20/22 History lamoTRIgine 100 mg PO BID 04/17/22 04/20/22 History metFORMIN HCL 500 mg PO BID 04/17/22 04/20/22 History sitaGLIPtin [Januvia] 100 mg PO DAILY 04/17/22 04/20/22 History amLODIPine [Norvasc] 2.5 mg PO DAILY 04/20/22 04/20/22 History Allergies Allergy/AdvReac Type Severity Reaction Status Date / Time Sulfa (Sulfonamide Allergy Rash/Hives Verified 04/20/22 08:50 Antibiotics) sulfamethoxazole Allergy Rash/Hives Verified 04/20/22 08:50 [From Bactrim] trimethoprim [From Bactrim] Allergy Rash/Hives Verified 04/20/22 08:50 Physical Exam Vitals: Vital Signs Temp Pulse Pulse Resp BP BP Pulse Ox 04/20/22 13:11 87 04/20/22 11:24 87 16 123/75 95 04/20/22 08:22 98.1 F 89 16 113/60 94 L 04/20/22 04:30 98.1 F 90 18 137/75 94 L 04/20/22 04:13 85 04/20/22 04:06 81 04/20/22 00:46 98.2 F 98 16 162/85 89 L Intake and Output 04/20/22 04/20/22 04/20/22 06:59 14:59 22:59 Output Total 600 Balance -600 Output: Urine 600 Other: Voiding Method Toilet Toilet # Voids 3 Weight 75.75 kg 75.75 kg GENERAL EXAM: Alert, very pleasant 62-year-old female, on 2 L nasal cannula, comfortable in no apparent distress. HEAD: Normocephalic. EYES: Normal reaction of pupils, equal size. NOSE: Clear with pink turbinates. THROAT: No erythema or exudates. NECK: No masses, no JVD. CHEST: No chest wall deformity. LUNGS: Equal air entry with bilateral scattered rhonchi. CVS: S1 and S2 normal with no audible murmur, regular rhythm. ABDOMEN: No hepatosplenomegaly, normal bowel sounds, no guarding or rigidity. SPINE: No scoliosis or deformity SKIN: No rashes CENTRAL NERVOUS SYSTEM: No focal deficits, tone is normal in all 4 extremities. EXTREMITIES: There is no peripheral edema. No clubbing, no cyanosis. Peripheral pulses are intact. Results - Laboratory Findings CBC and BMP: 04/20/22 01:32 04/20/22 07:59 PT/INR, D-dimer PT 10.1 sec (9.0-12.0) 04/20/22 01:32 INR 0.9 (<1.2) 04/20/22 01:32 Abnormal lab findings: Abnormal Labs 04/20/22 04/20/22 04/20/22 01:32 01:32 01:32 Lymphocytes # 0.7 L Sodium 126 L Chloride 90 L Creatinine 0.46 L Glucose 180 H POC Glucose (mg/dL) AST 75 H Alkaline Phosphatase 267 H Troponin I 0.081 H* 04/20/22 04/20/22 04/20/22 05:19 06:19 07:59 Lymphocytes # Sodium Chloride Creatinine Glucose POC Glucose (mg/dL) 219 H AST Alkaline Phosphatase Troponin I 0.069 H* 0.068 H* 04/20/22 04/20/22 07:59 11:30 Lymphocytes # Sodium 130 L Chloride Creatinine Glucose POC Glucose (mg/dL) 181 H AST Alkaline Phosphatase Troponin I - Diagnostic Findings Chest x-ray: image reviewed Assessment and Plan Assessment: Acute hypoxemic respiratory failure secondary to advanced adenocarcinoma either lung or pancreatic primary. Most suspicious for pancreatic carcinoma with lymphangitic carcinomatosis unless proven otherwise. Bilateral pleural effusions possibly malignant, and the recent thoracentesis was positive for adenocarcinoma of unclear primary lung or pancreatic Metastatic lymphadenopathy, status post right supraclavicular clavicular FNA again positive for adenocarcinoma possible lung primary Pericardial effusion without tamponade seen on recent echocardiogram. Multiple pulmonary nodules consistent with metastatic disease to the lungs Restrictive lung disease as noted on the recent PFT. Family history of pancreatic cancer. History of COVID-19 infection Type 2 diabetes without complications Essential hypertension History of depression Dyslipidemia Lang: The patient was seen and evaluated Chest x-ray, labs and medications reviewed Advanced metastatic cancer Medical oncology had been contacted Will await further recommendations However, would recommend comfort/hospice care To be discharged home with oxygen and either case We'll continue to follow and make further recommendations based on her clinical status I have personally seen and examined the patient, performed the documentation and the assessment and plan as written. Number of minutes spent on the visit: 20.
[2022-04-20 16:44] LABS: Glucose,Whole Blood 182 mg/dL (70-110)
[2022-04-20] MEDS: HEPARIN SODIUM,PORCINE/PF 5,000 UNIT/0.5 ML SYRINGE SQ SCH ×2 (17:08→22:33)
[2022-04-20 19:02] LABS: Glucose,Whole Blood 246 mg/dL (70-110)
--- NOTE | 2022-04-20 20:39 | CONS ---
CONSULTATION CHIEF COMPLAINT: Shortness of breath. HISTORY OF PRESENT ILLNESS: Raiza is a 62-year-old lady with history of hypertension, who has recently been admitted to hospital with shortness of breath and underwent extensive workup including a CT scan of the chest that showed multiple pulmonary nodules and possible lymphangitic carcinomatosis. She had pleural effusion on the right side and apparently underwent thoracentesis. We do not have a tissue diagnosis at this time. She had a liver mass and apparently a pancreatic mass. The patient was treated and was discharged home with a tentative diagnosis of pancreatic cancer with metastasis. She was home for less than a day, came back with worsening shortness of breath and Cardiology had been consulted for the same. Her chest x-ray shows pulmonary edema. Troponins are mildly elevated. BNP is not significantly elevated. An EKG shows sinus rhythm with nonspecific ST-T wave changes. She is being treated with intravenous Lasix with some improvement in her symptoms. The patient does not have any history of coronary artery disease or congestive heart failure. It is very likely that the pulmonary edema changes noted on the chest x-ray are related to lymphangitic carcinomatosis. I will continue with the IV Lasix for another 24 to 48 hours to see if indeed she has response to it. I will obtain a 2D echo to document her LV function. I will decide on further course of action based on how her symptoms evolve. I am adding an TRAVIS inhibitor and if indeed it turns out to be heart failure, I will add a beta gwen. PAST MEDICAL HISTORY: Significant for hypertension, diabetes, COPD, and dyslipidemia. MEDICATIONS: The patient was on, 1. Januvia. 2. Metformin. 3. Norvasc. 4. Ditropan. 5. Lexapro. 6. Zyrtec. 7. Xanax. 8. Abilify. ALLERGIES: To Bactrim. FAMILY HISTORY: Negative for premature coronary artery disease. SOCIAL HISTORY: Negative for smoking, EtOH abuse, or drug abuse. REVIEW OF SYSTEMS: A review of systems has been performed. Pertinents are as documented. PHYSICAL EXAMINATION: GENERAL: Comfortable at rest. VITAL SIGNS: Stable. CHEST: Reveals diminished air entry at the right base. I do not hear any crackles or rhonchi. HEART: Reveals first and second heart sounds. No gallop. No murmur. No rub. ABDOMEN: Soft, nontender. EXTREMITIES: Did not reveal any edema. Peripheral pulses are felt. LABORATORY DATA: Labs show hemoglobin of 13.1, platelet count of 225. Sodium is low at 126, potassium is 4.4 creatinine is 0.4. Three sets of troponins are elevated at 0.08, 0.06, and 0.06. AST and ALT are slightly elevated. BNP is 636. ASSESSMENT: 1. Metastatic cancer, probably of pancreatic origin with right pleural effusion. 2. Possible lymphangitic carcinomatosis. 3. Elevated troponin probably related to the underlying metastatic cancer. 4. Rule out acute pulmonary edema. PLAN: The patient's clinical presentation seems to be primarily related to underlying metastatic cancer. I doubt a diagnosis of pulmonary edema given the lymphangitic carcinomatosis that has already been diagnosed. I will treat her with IV Lasix for another day or 2 and see if her symptoms are chest x-ray appearance changes at all. If it does not, then it is primarily related to the metastatic cancer and we can stop the Lasix at that time. I am going to obtain a 2D echo to document her LV function. Prognosis is guarded. MMODL / IJN: [id number] /
[2022-04-20] MEDS ORDERED: ATORVASTATIN 10 MG TAB PO SCH (21:00)
[2022-04-20] MEDS: FAMOTIDINE 20 MG TAB PO SCH (21:07)
[2022-04-20] MEDS: ALPRAZolam 0.25 MG TAB PO PRN (22:30)
[2022-04-21] MEDS: ALPRAZolam 0.25 MG TAB PO PRN ×2 (04:38→14:05)
[2022-04-21] MEDS ORDERED: FUROSEMIDE 10 MG/ML 4 ML VIAL IV SCH (06:00)
[2022-04-21 06:07] LABS: Glucose,Whole Blood 222 mg/dL (70-110)
[2022-04-21] MEDS: INSULIN ASPART (NovoLOG) 100 UNIT/ML VIAL SQ SCH ×3 (06:34→17:01)
[2022-04-21] MEDS: ESCITALOPRAM 10 MG TAB PO SCH (08:23)
[2022-04-21] MEDS: LORATADINE 10 MG TAB PO SCH (08:23)
[2022-04-21] MEDS: lamoTRIgine 100 MG TAB PO SCH (08:23)
[2022-04-21] MEDS: OXYBUTYNIN CHLORIDE 5 MG TAB PO SCH (08:23)
[2022-04-21] MEDS: CYANOCOBALAMIN 500 MCG TAB PO SCH (08:23)
[2022-04-21] MEDS: FAMOTIDINE 20 MG TAB PO SCH (08:23)
[2022-04-21] MEDS: HEPARIN SODIUM,PORCINE/PF 5,000 UNIT/0.5 ML SYRINGE SQ SCH ×2 (08:24→17:01)
[2022-04-21] MEDS: ARIPiprazole 5 MG TAB PO SCH (08:24)
[2022-04-21] MEDS: ACETAMINOPHEN TAB 325 MG TAB PO PRN ×2 (08:24→14:05)
[2022-04-21] MEDS: FLUTICASONE 50MCG/SPRAY NASAL 16GM EA NOSTRIL SCH (08:24)
[2022-04-21] MEDS ORDERED: CHOLECALCIFEROL 25 MCG (1000 IU) TABLET PO SCH (09:00)
[2022-04-21] MEDS ORDERED: MULTIVITAMINS, THERA 1 EACH TAB PO SCH (09:00)
--- NOTE | 2022-04-21 09:17 | CA ---
Transthoracic Echo Report Name: Raiza Singh Age: 62 Gender: F : 1960 Exam Date: 04/20/2022 11:28 Exam Location: [facility] Ht (in): 65 Wt (lb): 167 Ordering Physician: Rosas Flores DO Attending/Referring Phys: [id number], [facility] Khushbu Robertson RDCS Procedure CPT: Indications: Heart failure Cardiac Hx: Technical Quality: Fair Contrast 1: Total Dose (mL): Contrast 2: Total Dose (mL): MEASUREMENTS (Male / Female) Normal Values 2D ECHO LV Diastolic Diameter PLAX 3.8 cm 4.2 - 5.9 / 3.9 - 5.3 cm LV Systolic Diameter PLAX 2.0 cm IVS Diastolic Thickness 1.3 cm 0.6 - 1.0 / 0.6 - 0.9 cm LVPW Diastolic Thickness 1.2 cm 0.6 - 1.0 / 0.6 - 0.9 cm LV Relative Wall Thickness 0.7 RV Internal Dim ED PLAX 3.0 cm LA Volume 42.1 cm??? 18 - 58 / 22 - 52 cm??? M-MODE Aortic Root Diameter MM 2.8 cm LA Systolic Diameter MM 3.3 cm LA Ao Ratio MM 1.2 DOPPLER AV Peak Velocity 162.0 cm/s AV Peak Gradient 10.5 mmHg LVOT Peak Velocity 114.9 cm/s LVOT Peak Gradient 5.3 mmHg MV Area PHT 2.4 cm??? Mitral E Point Velocity 49.7 cm/s Mitral A Point Velocity 81.9 cm/s Mitral E to A Ratio 0.6 MV Deceleration Time 319.1 ms TR Peak Velocity 363.0 cm/s TR Peak Gradient 52.7 mmHg Right Ventricular Systolic Press 56.0 mmHg FINDINGS Left Ventricle Moderately increased left ventricular wall thickness. No obvious regional wall motion abnormalities. Left ventricular ejection fraction is estimated at 50-55 %. Right Ventricle Normal right ventricular size. Moderate to severe pulmonary hypertension. Right Atrium Normal right atrial size. Left Atrium Normal left atrial size. Mitral Valve Structurally normal mitral valve. No mitral stenosis. Mild mitral regurgitation. Aortic Valve No aortic valve stenosis or regurgitation. Tricuspid Valve Mild tricuspid regurgitation. Pulmonic Valve Trace pulmonic regurgitation. Pericardium Small pericardial effusion. Aorta Normal size aortic root and proximal ascending aorta. CONCLUSIONS Normal left ventricular dimension and systolic function Small circumferential pericardial effusion Previewed by: Dr. Goyo Guerrero MD (Electronically Signed) Final Date: 21 April 2022 09:16
--- NOTE | 2022-04-21 09:23 | P.HPIM ---
History of Present Illness H&P Date: 04/20/22 Chief Complaint: Shortness of breath Patient is a 62-year-old female with a known history o, hypertension and hyperlipidemia and previous history of smoking was initially sent by her PCP due to complaints of generalized weakness and fatigue and weight loss and worsening dyspnea for the past 2 months. Patient also having dry cough and 35 pound weight loss during the last 2 months. 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 Direct dilation recommended. Right hepatic lobe masslike area of FDG activity measuring up to 4.8 cm Scattered pulmonary nodules of which the largest in the right upper lobe measuring 2.2 cm as well as multiple other larger nodules which demonstrate mild FDG activity possible metastatic disease with possible lymphangitic car cinomatosis of the lungs. There is associated mediastinal lymphadenopathy concerning for metastatic disease. Irregular splenic hilum/pancreatic tail mass with increased FDG activity measuring up to 3.1 cm unclear etiology given the constellation of findings above. Patient was discharged from the hospital yesterday. Did have thoracentesis and also right supraclavicular lymph node biopsy during the recent admission. Patient did improve symptomatically and was discharged home. After reaching h ome patient became more dyspneic and hypoxic and presented back to the hospital. Patient was found have an elevated CA CA-19-9 level X,000 chest x-ray showed moderately severe pulmonary edema which is slightly worse than recent exam. Laboratory data showed the was 8.4 hemoglobin 13.1 and platelets 225 Sodium 126 potassium 4.4 chloride 90 bicarb is 25 BUN 8 and creatinine 0.46 A1c 7.0, troponin 0.081, 0.06 Extent proBNP is 636. Review of Systems Constitutional: Patient denies any fever or chills . No generalized weakness or weight loss. Abdomen: Patient denied nausea vomiting and diarrhea and abdominal pain. Cardiovascular: Patient denies any chest pain or short of breath no palpitations. Respiratory: patient denied any cough is from production. Does have shortness of breath Neurologic: Patient denied any numbness or tingling headache. Musculoskeletal: Patient denies any complaints of joint swelling or deformity. Skin: Negative Psychiatric: Negative Endocrine: No heat or cold intolerance. No recent weight gain. Genitourinary: No dysuria or hematuria. All other 14 point ROS negative except the above Past Medical History Past Medical History: Cancer, Diabetes Mellitus, Hyperlipidemia Additional Past Medical History / Comment(s): pancreatic CA with lung mets History of Any Multi-Drug Resistant Organisms: None Reported Past Surgical History: Bariatric Surgery, Section, Hysterectomy, Tonsillectomy Past Anesthesia/Blood Transfusion Reactions: No Reported Reaction Past Psychological History: No Psychological Hx Reported Smoking Status: Former smoker Past Alcohol Use History: Rare Past Drug Use History: None Reported - Past Family History Mother Family Medical History: CVA/TIA Father Family Medical History: Congestive Heart Failure (CHF), Diabetes Mellitus Sister(s) Family Medical History: Cancer Additional Family Medical History / Comment(s): PANCREATIC CANCER, BREAST CANCER Medications and Allergies Home Medications Medication Instructions Recorded Confirmed Type ALPRAZolam [Xanax] 0.25 mg PO BID PRN 04/17/22 04/20/22 History ARIPiprazole [Abilify] 5 mg PO DAILY 04/17/22 04/20/22 History Albuterol Inhaler [Ventolin Hfa 1 - 2 puff INHALATION RT-Q6H PRN 04/17/22 04/20/22 History Inhaler] Atorvastatin Calcium 10 mg PO HS 04/17/22 04/20/22 History Cetirizine HCl [Zyrtec] 10 mg PO DAILY 04/17/22 04/20/22 History Cholecalciferol [Vitamin D3 (25 50 mcg PO DAILY 04/17/22 04/20/22 History Mcg = 1000 Iu)] Cyanocobalamin (Vitamin B-12) 1,000 mcg PO DAILY 04/17/22 04/20/22 History [Vitamin B-12] Escitalopram [Lexapro] 10 mg PO DAILY 04/17/22 04/20/22 History Famotidine [Pepcid] 20 mg PO BID 04/17/22 04/20/22 History Fluticasone Nasal [place] [Flonase 1 spray EA NOSTRIL DAILY 04/17/22 04/20/22 History Nasal [place]] Multivitamins, Thera [Multivitamin 1 tab PO DAILY 04/17/22 04/20/22 History (formulary)] Oxybutynin Chloride [Ditropan] 5 mg PO BID 04/17/22 04/20/22 History Oxybutynin Chloride [Ditropan] 5 mg PO BID PRN 04/17/22 04/20/22 History lamoTRIgine 100 mg PO BID 04/17/22 04/20/22 History metFORMIN HCL 500 mg PO BID 04/17/22 04/20/22 History sitaGLIPtin [Januvia] 100 mg PO DAILY 04/17/22 04/20/22 History amLODIPine [Norvasc] 2.5 mg PO DAILY 04/20/22 04/20/22 History Allergies Allergy/AdvReac Type Severity Reaction Status Date / Time Sulfa (Sulfonamide Allergy Rash/Hives Verified 04/20/22 08:50 Antibiotics) sulfamethoxazole Allergy Rash/Hives Verified 04/20/22 08:50 [From Bactrim] trimethoprim [From Bactrim] Allergy Rash/Hives Verified 04/20/22 08:50 Physical Exam Vitals: Vital Signs Temp Pulse Pulse Resp BP BP Pulse Ox 04/20/22 04:30 98.1 F 90 18 137/75 94 L 04/20/22 04:13 85 04/20/22 04:06 81 04/20/22 00:46 98.2 F 98 16 162/85 89 L Intake and Output 04/19/22 04/20/22 04/20/22 22:59 06:59 14:59 Output Total 600 Balance -600 Output: Urine 600 Other: Voiding Method Toilet Weight 75.75 kg PHYSICAL EXAMINATION: Patient is lying in the bed comfortably, no acute distress, awake alert and oriented.. HEENT: Normocephalic. Neck is supple. Pupils reactive. Nostrils clear. Oral cavity is moist. Neck reveals no JVD, carotid bruits, or thyromegaly. CHEST EXAMINATION: Trachea is central. Symmetrical expansion. Bibasilar diminished sounds and right basilar coarse sounds. CARDIAC: Normal S1, S2 with no gallops. No murmurs ABDOMEN: Soft. Bowel sounds present. Nontender. No organomegaly. No abdominal bruits. Extremities: reveal no edema. No clubbing or cyanosis Neurologically awake, alert, oriented x3 with well-coordinated movements. No focal deficits noted Skin: No rash or skin lesions. Psychiatric: Coperative. Nonsuicidal, Musculoskeletal: No joint swelling or deformity. Normal range of motion. Results CBC & Chem 7: 04/20/22 01:32 04/20/22 07:59 Labs: Abnormal Lab Results - Last 24 Hours (Table) 04/20/22 04/20/22 04/20/22 Range/Units 01:32 01:32 01:32 Lymphocytes # 0.7 L (1.0-4.8) k/uL Sodium 126 L (137-145) mmol/L Chloride 90 L (98-107) mmol/L Creatinine 0.46 L (0.52-1.04) mg/dL Glucose 180 H (74-99) mg/dL POC Glucose (mg/dL) (70-110) mg/dL AST 75 H (14-36) U/L Alkaline Phosphatase 267 H (38-126) U/L Troponin I 0.081 H* (0.000-0.034) ng/mL 04/20/22 04/20/22 04/20/22 Range/Units 05:19 06:19 07:59 Lymphocytes # (1.0-4.8) k/uL Sodium (137-145) mmol/L Chloride (98-107) mmol/L Creatinine (0.52-1.04) mg/dL Glucose (74-99) mg/dL POC Glucose (mg/dL) 219 H (70-110) mg/dL AST (14-36) U/L Alkaline Phosphatase (38-126) U/L Troponin I 0.069 H* 0.068 H* (0.000-0.034) ng/mL 04/20/22 Range/Units 07:59 Lymphocytes # (1.0-4.8) k/uL Sodium 130 L (137-145) mmol/L Chloride (98-107) mmol/L Creatinine (0.52-1.04) mg/dL Glucose (74-99) mg/dL POC Glucose (mg/dL) (70-110) mg/dL AST (14-36) U/L Alkaline Phosphatase (38-126) U/L Troponin I (0.000-0.034) ng/mL Thrombosis Risk Factor Assmnt - DVT/VTE Prophylaxis DVT/VTE Prophylaxis: Pharmacologic Prophylaxis ordered - Choose All That Apply Any of the Below Risk Factors Present?: Yes Each Factor Represents 1 point: Obesity (BMI >25) Other Risk Factors: Yes Each Risk Factor Represents 2 Points: Age 61-74 years Other congenital or acquired thrombophilia - If yes, enter type in comment: No Thrombosis Risk Factor Assessment Total Risk Factor Score: 3 Thrombosis Risk Factor Assessment Level: Moderate Risk Assessment and Plan Assessment: Acute hypoxic respiratory failure secondary to pleural effusion and advanced metastatic cancer with diffuse lymphadenopathy. Likely pancreatic. Status post biopsy on 01/16/2022-right supraclavicular. Bilateral pleural effusion most likely malignant effusion. Suspected metastatic pancreatic carcinoma. PET scan showed mass of the tail of the pancreas could be a tumor and elevated CA 19-9. Bilateral pleural effusions likely malignant Hyponatremia likely hypoosmolar. on thiazide diuretic. On hold now. Family history of pancreatic cancer Hypertension Hyperlipidemia Diabetes type 2 [id number] History of COVID-19 infection DVT prophylaxis with Lovenox subcu Plan: Patient was given a dose of IV Lasix. Continue with IV Lasix as blood pressure tolerates. Follow-up CBC and BMP. Replace lites. Continue the pain management and DuoNeb's and follow up closely. Her memory and cardiology was consulted. 2-D echocardiogram was ordered. Awaiting final pathology report. Prognosis is poor at this time. Time with Patient: Greater than 30
[2022-04-21 09:45] LABS: African American GFR (CKD) >90 (>60 ml/min/1.73 sqM); Anion Gap 14 mmol/L; Blood Urea Nitrogen 7 mg/dL (7-17); Calcium 9.3 mg/dL (8.4-10.2); Carbon Dioxide 30 mmol/L (22-30); Chloride 81 mmol/L (98-107); Glucose 270 mg/dL (74-99); Non-African American GFR(CKD) >90 (>60 ml/min/1.73 sqM); Potassium 3.6 mmol/L (3.5-5.1); Sodium 125 mmol/L (137-145)
--- NOTE | 2022-04-21 11:48 | P.PN ---
Subjective This is a 62-year-old female with a past medical history of hypertension, dyslipidemia, type 2 diabetes, remote smoking history, quit smoking over 25 years ago, GERD. She does not follow with a head correction officer. We're consulted for congestive heart failure. 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 She has been losing weight roughly 30 pounds in the last [address] of the chest that came back showing multiple parenchymal masses media stinal adenopathy moderate pericardial effusion bilateral pleural effusions and a liver mass. She presents emergency department with shortness of breath. Cardiology evaluated the patient and started the patient on IV Lasix 40 mg twice a day to monitor response. 04/21 Patient seen and examined at bedside, no acute distress. She states that her breathing has improved. She continues to be on 3 L nasal cannula. She states she feels more short of breath when her oxygen is removed. She was able to shower and ambulate in her room without difficulty this morning. She continues to be maintained on IV Lasix. Echocardiogram revealed EF of 5055 percent, moderate to severe pulmonary hypertension with an RVSP of 56 mmHg. Labs, sodium 125, potassium 3.6, BUN 7, serum creatinine 0.6. GENERAL: Well-appearing, well-nourished and in no acute distress. NECK: Supple without JVD or thyromegaly. LUNGS: Breath sounds clear to auscultation bilaterally. Respiration equal and unlabored. No wheezes, rales or rhonchi. HEART: Regular rate and rhythm without murmurs, rubs or gallops. S1 and S2 heard. EXTREMITIES: Normal range of motion, no edema. No clubbing or cyanosis. Peripheral pulses intact. ASSESSMENT Acute hypoxemic respiratory failure secondary to metastatic cancer Metastatic lymphadenopathy Right pleural effusion, possibly malignant Recent thoracentesis was positive for adenocarcinoma having features suggestive of lung primary on 04/18/2022 Rule out acute pulmonary edema Hypertension Dyslipidemia Type 2 diabetes Remote smoking history PLAN Transition to PO Lasix Patients clinical presentation seems been primarily related to underlying metastatic cancer. Monitor response Oncology has been consulted Further recommendations based on clinical course Nurse Practitioner note has been reviewed, I agree with a documented findings and plan of care. Patient was seen and examined. Objective - Vital Signs Vital signs: Vital Signs Temp 98.6 F 04/21/22 04:00 Pulse 92 04/21/22 05:19 Resp 18 04/21/22 04:00 BP 139/80 04/21/22 04:00 Pulse Ox 95 04/21/22 05:07 FiO2 Intake & Output 04/20/22 04/21/22 04/21/22 18:59 06:59 18:59 Intake Total 10 360 Balance 10 360 Weight 75.75 kg Intake: IV 10 Invasive Line 1 10 Oral 360 Other: Voiding Method Toilet Toilet # Voids 3 0 - Labs CBC & Chem 7: 04/20/22 01:32 04/21/22 09:06 Labs: Abnormal Lab Results - Last 24 Hours (Table) 04/20/22 04/20/22 04/20/22 Range/Units 01:32 07:59 11:30 POC Glucose (mg/dL) 181 H (70-110) mg/dL Hemoglobin A1c 7.0 H (0.0-6.0) % Troponin I 0.068 H* (0.000-0.034) ng/mL 04/20/22 04/20/22 04/21/22 Range/Units 16:41 18:59 06:05 POC Glucose (mg/dL) 182 H 246 H 222 H (70-110) mg/dL Hemoglobin A1c (0.0-6.0) % Troponin I (0.000-0.034) ng/mL
[2022-04-21 12:10] LABS: Glucose,Whole Blood 200 mg/dL (70-110)
--- NOTE | 2022-04-21 13:04 | P.PN ---
Subjective Progress Note Date: 04/21/22 This is a 62-year-old female patient with a recent abnormal CT of the chest showing multiple pulmonary nodules and what seems to be a lymphangitic carcinomatosis involving both lungs. Patient is known to have history of hypertension, GERD, dyslipidemia, type 2 diabetes, remote smoking history, and she quit smoking over 25 years ago. She has family history of pancreatic cancer, and she has been losing weight roughly 30 pounds in the last 2 months. She had a CT of the chest that came back showing multiple parenchymal masses mediastinal adenopathy moderate pericardial effusion bilateral pleural effusions and a liver mass. After evaluating the patient, it was felt that we were most likely were dealing with pancreatic cancer with lymphangitic carcinomatosis with a CA 199. Her PET scan which was done recently clearly showed significant uptake in her pulmonary nodules, mediastinal nodes, liver mass, and a pancreatic mass. That went ahead to confirm that this is most likely a pancreatic cancer with metastasis. CA 199 came back over 10,000. She is having a right-sided thoracentesis 04/18/2022 during her recent admission for pleural effusion that was positive for metastatic adenocarcinoma. Within the differential included pulmonary primary adenocarcinoma and pancreaticobiliary adenocarcinoma. , She also had an image guided right supraclavicular clavicular lymph node biopsy that was positive for metastatic adenocarcinoma having features suggestive of lung primary. She was subsequently discharged home yesterday however she developed increasing shortness of breath every presented here to the emergency room last night. Chest x-ray continues to show moderately severe pulmonary edema which slightly worse compared to previous. There is diffuse interstitial and airspace edema. She is seen today in consultation on the regular medical floor. She is sitting up in a chair at the bedside. She is maintaining O2 saturations in the mid 90s on 2 L/m per nasal cannula. She's afebrile. Hemodynamically stable. White count 8.5. Hemoglobin 13.1. Platelets 225. Sodium 126. Potassium 4.4. BUN 8. Creatinine 0.46. ProBNP 636. The patient is seen today 04/21/2022 in follow-up on the selective care unit. She is currently sitting up in a chair at the bedside. Awake and alert in no acute distress. She is maintaining O2 saturations in the mid 90s on 3 L/m per nasal cannula. She's been afebrile. Hemodynamically stable. Sodium 125. Potassium 3.6. Bicarb 30. BUN 7. Creatinine 0.69. Glucose 270. She is continued on DuoNeb inhalations and heparin for DVT prophylaxis. Objective - Vital Signs Vital signs: Vital Signs Temp 99.2 F 04/21/22 08:17 Pulse 86 04/21/22 11:35 Resp 16 04/21/22 11:35 BP 120/72 04/21/22 11:35 Pulse Ox 96 04/21/22 11:35 FiO2 Intake & Output 04/20/22 04/21/22 04/21/22 18:59 06:59 18:59 Intake Total 10 360 Balance 10 360 Weight 75.75 kg Intake: IV 10 Invasive Line 1 10 Oral 360 Other: Voiding Method Toilet Toilet Toilet # Voids 3 0 - Exam GENERAL EXAM: Alert, very pleasant 62-year-old female, on 3 L nasal cannula, comfortable in no apparent distress. HEAD: Normocephalic. EYES: Normal reaction of pupils, equal size. NOSE: Clear with pink turbinates. THROAT: No erythema or exudates. NECK: No masses, no JVD. CHEST: No chest wall deformity. LUNGS: Equal air entry with bilateral scattered rhonchi. CVS: S1 and S2 normal with no audible murmur, regular rhythm. ABDOMEN: No hepatosplenomegaly, normal bowel sounds, no guarding or rigidity. SPINE: No scoliosis or deformity SKIN: No rashes CENTRAL NERVOUS SYSTEM: No focal deficits, tone is normal in all 4 extremities. EXTREMITIES: There is no peripheral edema. No clubbing, no cyanosis. Peripheral pulses are intact. - Labs CBC & Chem 7: 04/20/22 01:32 04/21/22 09:06 Labs: Abnormal Lab Results - Last 24 Hours (Table) 04/20/22 04/20/22 04/20/22 Range/Units 01:32 16:41 18:59 Sodium (137-145) mmol/L Chloride (98-107) mmol/L Glucose (74-99) mg/dL POC Glucose (mg/dL) 182 H 246 H (70-110) mg/dL Hemoglobin A1c 7.0 H (0.0-6.0) % 04/21/22 04/21/22 04/21/22 Range/Units 06:05 09:06 12:08 Sodium 125 L (137-145) mmol/L Chloride 81 L (98-107) mmol/L Glucose 270 H (74-99) mg/dL POC Glucose (mg/dL) 222 H 200 H (70-110) mg/dL Hemoglobin A1c (0.0-6.0) % Assessment and Plan Assessment: Acute hypoxemic respiratory failure secondary to advanced adenocarcinoma either lung or pancreatic primary. Most suspicious for pancreatic carcinoma with lymphangitic carcinomatosis unless proven otherwise. Bilateral pleural effusions possibly malignant, and the recent thoracentesis was positive for adenocarcinoma of unclear primary lung or pancreatic Metastatic lymphadenopathy, status post right supraclavicular clavicular FNA again positive for adenocarcinoma possible lung primary Pericardial effusion without tamponade seen on recent echocardiogram. Multiple pulmonary nodules consistent with metastatic disease to the lungs Restrictive lung disease as noted on the recent PFT. Family history of pancreatic cancer. History of COVID-19 infection Type 2 diabetes without complications Essential hypertension History of depression Dyslipidemia Lang: The patient was seen and evaluated Labs and medications reviewed Home after being seen by medical oncology Will most likely require home oxygen I have personally seen and examined the patient, performed the documentation and the assessment and plan as written. Number of minutes spent on the visit: 10.
[2022-04-21 15:54] VITALS: BP 107/64; PULSE 79; RESP 18; TEMP 98.4
[2022-04-21 17:00] LABS: Glucose,Whole Blood 144 mg/dL (70-110)
--- NOTE | 2022-04-21 17:57 | P.CONS ---
History of Present Illness - Reason for Consult Consult date: 04/21/22 New metastatic lung - History of Present Illness Mrs. Singh is a pleasant 62-year-old female we have recently seen last admission and again been consulted because of abnormal findings on imaging. Patient states that changes in her health started a few months ago. She had noticed a change in her breathing, more labored, more frequent cough, fatigue that is been persistent and progressive, appetite has been poor, reports unintentional weight loss of about 35 pounds. Patient denies any nausea, vomiting, change in bowel habits. She has a history of colon polyps, last colonoscopy was about 5 years ago in [place]. She has had mammograms and a few biopsies but, no personal history of cancer. She had a sister with breast cancer in her 30s, then diagnosed with pancreatic cancer and is now . She has 2 children one of them has a history of lung nodules that are being followed. Patient was referred to Pulmonary and she has seen Dr. Cantu. He ordered testing, PET scan done 04/14 showed rectal wall thickening, pulmonary nodules a pancreatic mass. Chest x-ray showing stents of nodular and interstitial infiltrates. CTA showed pulmonary masses and/infiltrate no PE. US of the liver showed a right liver mass, about 4 cm. US of the chest showing bilateral pleural effusions. Last admission she underwent FNA Supraclavicular LN and Thora fluid cytology taken, both resulted positive for metastatic freddy nocarcinoma, likely lung primary Review of Systems All systems: negative Constitutional: Reports as per HPI Past Medical History Past Medical History: Cancer, Diabetes Mellitus, Hyperlipidemia Additional Past Medical History / Comment(s): pancreatic CA with lung mets History of Any Multi-Drug Resistant Organisms: None Reported Past Surgical History: Bariatric Surgery, Section, Hysterectomy, Tonsillectomy Past Anesthesia/Blood Transfusion Reactions: No Reported Reaction Past Psychological History: No Psychological Hx Reported Smoking Status: Former smoker Past Alcohol Use History: Rare Past Drug Use History: None Reported - Past Family History Mother Family Medical History: CVA/TIA Father Family Medical History: Congestive Heart Failure (CHF), Diabetes Mellitus Sister(s) Family Medical History: Cancer Additional Family Medical History / Comment(s): PANCREATIC CANCER, BREAST CANCER Medications and Allergies Home Medications Medication Instructions Recorded Confirmed Type ARIPiprazole [Abilify] 5 mg PO DAILY 04/17/22 04/20/22 History Albuterol Inhaler [Ventolin Hfa 1 - 2 puff INHALATION RT-Q6H PRN 04/17/22 04/20/22 History Inhaler] Atorvastatin Calcium 10 mg PO HS 04/17/22 04/20/22 History Cetirizine HCl [Zyrtec] 10 mg PO DAILY 04/17/22 04/20/22 History Cholecalciferol [Vitamin D3 (25 50 mcg PO DAILY 04/17/22 04/20/22 History Mcg = 1000 Iu)] Cyanocobalamin (Vitamin B-12) 1,000 mcg PO DAILY 04/17/22 04/20/22 History [Vitamin B-12] Escitalopram [Lexapro] 10 mg PO DAILY 04/17/22 04/20/22 History Famotidine [Pepcid] 20 mg PO BID 04/17/22 04/20/22 History Fluticasone Nasal Meredith [Flonase 1 spray EA NOSTRIL DAILY 04/17/22 04/20/22 History Nasal Meredith] Multivitamins, Thera [Multivitamin 1 tab PO DAILY 04/17/22 04/20/22 History (formulary)] Oxybutynin Chloride [Ditropan] 5 mg PO BID 04/17/22 04/20/22 History Oxybutynin Chloride [Ditropan] 5 mg PO BID PRN 04/17/22 04/20/22 History lamoTRIgine 100 mg PO BID 04/17/22 04/20/22 History metFORMIN HCL 500 mg PO BID 04/17/22 04/20/22 History sitaGLIPtin [Januvia] 100 mg PO DAILY 04/17/22 04/20/22 History ALPRAZolam [Xanax] 0.25 mg PO TID 3 Days #9 tab 04/21/22 Rx Furosemide [Lasix] 20 mg PO DAILY #30 tab 04/21/22 Rx lisinopriL [Zestril] 2.5 mg PO DAILY #30 tab 04/21/22 Rx Allergies Allergy/AdvReac Type Severity Reaction Status Date / Time Sulfa (Sulfonamide Allergy Rash/Hives Verified 04/20/22 08:50 Antibiotics) sulfamethoxazole Allergy Rash/Hives Verified 04/20/22 08:50 [From Bactrim] trimethoprim [From Bactrim] Allergy Rash/Hives Verified 04/20/22 08:50 Physical Exam Vitals: Vital Signs Temp Pulse Pulse Resp BP Pulse Ox 04/21/22 11:35 86 16 120/72 96 04/21/22 08:17 99.2 F 107 H 16 104/57 95 04/21/22 05:19 92 04/21/22 05:07 89 95 04/21/22 04:00 98.6 F 84 18 139/80 94 L 04/20/22 23:40 98.4 F 94 16 127/75 91 L 04/20/22 20:00 98.8 F 94 18 109/67 95 04/20/22 16:07 98.0 F 94 16 149/79 95 04/20/22 13:11 87 Intake and Output 04/20/22 04/21/22 04/21/22 22:59 06:59 14:59 Intake Total 10 360 Balance 10 360 Intake: IV 10 Invasive Line 1 10 Oral 360 Other: Voiding Method Toilet Toilet Toilet # Voids 0 - Constitutional General appearance: average body habitus, cooperative, mild distress - EENT Eyes: anicteric sclerae, EOMI ENT: hearing grossly normal, normal oropharynx - Neck Neck: no lymphadenopathy - Respiratory Respiratory: bilateral: diminished - Cardiovascular Rhythm: regular Heart sounds: normal: S1, S2 Abnormal Heart Sounds: no systolic murmur, no diastolic murmur, no rub, no S3 Gallop, no S4 Gallop, no click, no other leg Peripheral Edema: bilateral: None - Gastrointestinal General gastrointestinal: no absent bowel sounds, no decreased bowel sounds, no distended, no hepatomegaly, no hyperactive bowel sounds, normal bowel sounds, no organomegaly, no rigid, no scaphoid, soft, no splenomegaly, no tenderness, no umbilical hernia, no ventral hernia - Integumentary Integumentary: normal - Neurologic Neurologic: CNII-XII intact - Musculoskeletal Musculoskeletal: strength equal bilaterally - Psychiatric Psychiatric: A&O x's 3, appropriate affect, intact judgment & insight Results CBC & Chem 7: 04/20/22 01:32 04/21/22 09:06 Labs: Abnormal Lab Results - Last 24 Hours (Table) 04/20/22 04/20/22 04/20/22 Range/Units 01:32 16:41 18:59 Sodium (137-145) mmol/L Chloride (98-107) mmol/L Glucose (74-99) mg/dL POC Glucose (mg/dL) 182 H 246 H (70-110) mg/dL Hemoglobin A1c 7.0 H (0.0-6.0) % 04/21/22 04/21/22 04/21/22 Range/Units 06:05 09:06 12:08 Sodium 125 L (137-145) mmol/L Chloride 81 L (98-107) mmol/L Glucose 270 H (74-99) mg/dL POC Glucose (mg/dL) 222 H 200 H (70-110) mg/dL Hemoglobin A1c (0.0-6.0) % Assessment and Plan Plan: Comments: PET/CT from 04/14-report reviewed ultrasound of the chest-report reviewed Chest x-ray: report reviewed CT scan - chest: report reviewed US - abdomen: report reviewed Assessment and Plan Plan: New Diagnosis of metastatic adenocarcinoma cytology and supraclavicular Right Positive metaststic adenocarcinoma: Dr. perez has spoke to pathologist, requested lung cancer screen. Recommend at this time to obtain EUS and pancreatic biopsy as outpatient. Discussed new and incurable diagnosis and the recommendation for additional tissue diagnosis of pancreas, patient has asked about hospice and presfers no further diagnostcs, which is resonable Dr. Nunes: I have completed the full history and physical and developed the above impression and plan, agree with dictation, dictated as a scribe.
[2022-04-22] MEDS ORDERED: FUROSEMIDE 40 MG TAB PO SCH (09:00)
[2022-04-22] MEDS ORDERED: FUROSEMIDE 10 MG/ML 4 ML VIAL IV SCH (09:00)
== END 2022-04-21 18:01 | disposition hospice, home (50) | DRG 435 ==
LOC: EC 00:35 → 3SCARD 03:07
PROVIDERS: ADMIT Hospitalist; ATTEND Hospitalist
DX: C25.9 Malignant neoplasm of pancreas, unspecified (principal); J96.01 Acute respiratory failure with hypoxia; C77.9 Secondary and unspecified malignant neoplasm of lymph node, unspecified; E87.1 Hypo-osmolality and hyponatremia; C78.00 Secondary malignant neoplasm of unspecified lung; I31.3 Pericardial effusion (noninflammatory); I50.9 Heart failure, unspecified; J98.4 Other disorders of lung; K21.9 Gastro-esophageal reflux disease without esophagitis; J44.9 Chronic obstructive pulmonary disease, unspecified; E11.9 Type 2 diabetes mellitus without complications; I11.0 Hypertensive heart disease with heart failure; E78.5 Hyperlipidemia, unspecified; E86.0 Dehydration; I07.1 Rheumatic tricuspid insufficiency; I37.1 Nonrheumatic pulmonary valve insufficiency; I27.20 Pulmonary hypertension, unspecified; Z79.84 Long term (current) use of oral hypoglycemic drugs; Z79.899 Other long term (current) drug therapy; Z80.0 Family history of malignant neoplasm of digestive organs; Z80.3 Family history of malignant neoplasm of breast; Z82.3 Family history of stroke; Z85.07 Personal history of malignant neoplasm of pancreas; Z86.16 Personal history of COVID-19; Z87.19 Personal history of other diseases of the digestive system; Z87.891 Personal history of nicotine dependence; Z90.710 Acquired absence of both cervix and uterus; Z88.2 Allergy status to sulfonamides; Z88.8 Allergy status to other drugs, medicaments and biological substances; Z98.84 Bariatric surgery status
CPT/HCPCS: 36415; 71046; 80048; 80053; 83036; 83605; 83735; 83880; 84295; 84484; 85025; 85610; 85730; 93005; 93306; 94640; 94760; 96374; 99285